=== PATIENT | male | born 1965 | race Two or more races ===

== ENCOUNTER → 2020-04-12 | Outpatient (CLI) | payer OTHER, SELFPAY ==
[2020-04-12 13:41] VITALS: BMI 30.2
== END | disposition home or self-care (01) ==
PROVIDERS: Referring Provider Physician Assistant Surgical; Visit Provider Physician Assistant Surgical
DX: Z20.822 Contact with and (suspected) exposure to COVID-19 (principal)
CPT/HCPCS: 87635; U0003

== ENCOUNTER → 2021-01-20 09:33 | Outpatient (CLI) | payer OTHER, SELFPAY ==
--- NOTE | 2021-01-20 09:45 | RAD_ITS ---
EXAM: XR CHEST, 2 VIEWS : 1965 CLINICAL INDICATION: PAIN TECHNIQUE: Frontal and lateral views of the chest. This report was created using [employer] report generation technology. COMPARISON: None. FINDINGS: LUNGS AND PLEURAL SPACES: Unremarkable. No consolidation or edema. No pneumothorax. No effusion. HEART: Unremarkable. Cardiac silhouette not enlarged. MEDIASTINUM: Central airways and mediastinal contour are unremarkable. BONES/JOINTS: Unremarkable. SOFT TISSUES: Unremarkable. RAD/Chest PA and Lateral IMPRESSION: No radiographic evidence of acute cardiopulmonary disease. at 0312 Reported and signed by: Smeaj Inman MD Electronically Signed: Semaj Inman MD at 3:11 EDT Tel , Service support ,
[2021-01-20 12:19] LABS: Absolute Lymphocyte Count 1.31 X10^3/uL (0.83-4.51); Absolute Neutrophil Count 5.6 X10^3/uL (2.0-7.7); Basophil% 1.2 % (0-1); Eosinophil# 0.63 X10^3/uL; Eosinophils% 7.5 % (0-5); Hematocrit 41.4 % (40-54); Hemoglobin 13.2 g/dL (13.0-16.5); Lymphocyte # 1.31 X10^3/ul (0.83-4.51); Lymphocyte % 15.6 % (19-41); Mean Corp Hgb Conc 31.9 g/dL (32-36); Mean Corpuscular Hgb 27.2 pg (27.0-32.0); Mean Corpuscular Volume 85.4 fL (80-94); Mean Platelet Vol. 10.6 fl (6.2-12.0); Monocyte# 0.69 X10^3/uL; Monocyte% 8.2 % (0-10); NRBC Flagged by Analyzer 0 % (0-5); Neutrophil # 5.61 X10^3/uL (2.7-7.7); Neutrophil % 66.5 % (47-70); Platelet Count 444 K/mm3 (150-450); RBC Distribution Width CV 12.5 % (11.6-14.6); RBC Distribution Width SD 38.9 fl (35.1-43.9); Red Blood Count 4.85 M/mm3 (4.6-6.2); White Blood Count 8.4 K/mm3 (4.4-11.0)
[2021-01-20 12:30] LABS: Erythrocyte Sedimentation Rate 8 mm/hr (0-20)
[2021-01-20 13:24] LABS: ALB/GLOB Ratio 0.9 RATIO (0.9-2.4); AST(SGOT) 17 U/L (15-37); Alanine Aminotransfer ALT/SGPT 29 U/L (16-61); Albumin, Serum 3.8 g/dL (3.2-5.0); Alkaline Phosphatase 40 U/L (45-117); Anion Gap 9 (5-15); BUN 20 mg/dL (7-18); BUN/Creat Ratio 17.1 RATIO (10-20); CRP < 2.90 mg/L (0.0-3.0); Calcium,Total 9.7 mg/dL (8.5-10.1); Chloride 102 mmol/L (98-107); Creatinine, Serum 1.17 mg/dL (0.70-1.30); EST Glomerular Filtration Rate 68 mL/min (>60); Est Glom Filt Rate - Afr Amer 82 mL/min (>60); Globulin 4.4 g/dL (2.2-4.2); Glucose 95 mg/dL (74-106); Hepatitis B Surface Antibody Non-Reactive; Hepatitis C Antibody Non-Reactive (Nonreactive); Potassium 3.9 mmol/L (3.5-5.1); Protein, Total 8.2 g/dL (6.4-8.2); Rheumatoid Factor < 10.0 IU/mL (<15); Sodium Level 139 mmol/L (136-145)
[2021-01-20 13:31] LABS: Hepatitis B Surface Antigen REACTIVE (Nonreactive)
[2021-01-21 13:21] LABS: ANTINUCLEAR ANTIBODIES DIRECT Negative (Negative)
[2021-01-22 15:18] LABS: CCP IgG Antibodies 9 units (0-19)
== END ==
PROVIDERS: PCP Nurse Practitioner Family; Referring Provider Internal Medicine Rheumatology; Visit Provider Internal Medicine Rheumatology
DX: L40.59 Other psoriatic arthropathy (principal); L40.8 Other psoriasis; M21.41 Flat foot [pes planus] (acquired), right foot; M21.42 Flat foot [pes planus] (acquired), left foot; Z79.899 Other long term (current) drug therapy
CPT/HCPCS: 36415; 71046; 80053; 85025; 85652; 86038; 86140; 86200; 86431; 86706; 86803; 87340

== ENCOUNTER → 2021-03-18 08:20 | Outpatient (CLI) | payer OTHER, SELFPAY | PROVIDERS: PCP Nurse Practitioner Family; Referring Provider Internal Medicine Rheumatology; Visit Provider Internal Medicine Rheumatology | DX: L40.59 Other psoriatic arthropathy (principal); L40.8 Other psoriasis; M21.41 Flat foot [pes planus] (acquired), right foot; M21.42 Flat foot [pes planus] (acquired), left foot; I10 Essential (primary) hypertension; E78.5 Hyperlipidemia, unspecified; Z79.899 Other long term (current) drug therapy ==

== ENCOUNTER → 2021-10-20 | Outpatient (CLI) | payer OTHER, SELFPAY ==
[2021-10-20 18:27] LABS: AST(SGOT) 20 U/L (15-37); Alanine Aminotransfer ALT/SGPT 27 U/L (16-61); Albumin, Serum 3.6 g/dL (3.2-5.0); Alkaline Phosphatase 34 U/L (45-117); Globulin 3.6 g/dL (2.2-4.2); Protein, Total 7.2 g/dL (6.4-8.2)
[2021-10-22 12:02] LABS: AFP, Tumor Marker 2.6 ng/mL (0.0-8.4)
== END | disposition home or self-care (01) ==
LOC: MTLAB 15:49
PROVIDERS: PCP Nurse Practitioner Family; Referring Provider Internal Medicine Gastroenterology; Visit Provider Internal Medicine Gastroenterology
DX: B18.1 Chronic viral hepatitis B without delta-agent (principal)
CPT/HCPCS: 36415; 80076; 82105

== ENCOUNTER → 2022-02-08 | Outpatient (CLI) | payer OTHER, SELFPAY ==
[2022-02-08 10:01] LABS: Absolute Lymphocyte Count 1.31 X10^3/uL (0.83-4.51); Absolute Neutrophil Count 5.3 X10^3/uL (2.0-7.7); Basophil# 0.08 X10^3/uL; Eosinophil# 0.53 X10^3/uL; Eosinophils% 6.6 % (0-5); Hematocrit 40.9 % (40-54); Hemoglobin 13.3 g/dL (13.0-16.5); Lymphocyte # 1.31 X10^3/ul (0.83-4.51); Lymphocyte % 16.3 % (19-41); Mean Corp Hgb Conc 32.5 g/dL (32-36); Mean Corpuscular Hgb 27.5 pg (27.0-32.0); Mean Corpuscular Volume 84.7 fL (80-94); Mean Platelet Vol. 10.3 fl (6.2-12.0); Monocyte# 0.82 X10^3/uL; Monocyte% 10.2 % (0-10); NRBC Flagged by Analyzer 0 % (0-5); Neutrophil # 5.25 X10^3/uL (2.7-7.7); Neutrophil % 65.4 % (47-70); Platelet Count 456 K/mm3 (150-450); RBC Distribution Width CV 12.5 % (11.6-14.6); RBC Distribution Width SD 38.5 fl (35.1-43.9); Red Blood Count 4.83 M/mm3 (4.6-6.2)
[2022-02-08 10:40] LABS: ALB/GLOB Ratio 0.9 RATIO (0.9-2.4); AST(SGOT) 12 U/L (15-37); Alanine Aminotransfer ALT/SGPT 25 U/L (16-61); Albumin, Serum 3.7 g/dL (3.2-5.0); Alkaline Phosphatase 37 U/L (45-117); Anion Gap 5 (5-15); BUN 19 mg/dL (7-18); BUN/Creat Ratio 14.7 RATIO (10-20); Calcium,Total 9.8 mg/dL (8.5-10.1); Chloride 104 mmol/L (98-107); Creatinine, Serum 1.29 mg/dL (0.70-1.30); EST Glomerular Filtration Rate 61 mL/min (>60); Est Glom Filt Rate - Afr Amer 73 mL/min (>60); Globulin 4.2 g/dL (2.2-4.2); Glucose 106 mg/dL (74-106); Potassium 4.1 mmol/L (3.5-5.1); Protein, Total 7.9 g/dL (6.4-8.2); Sodium Level 137 mmol/L (136-145)
== END | disposition home or self-care (01) ==
PROVIDERS: PCP Nurse Practitioner Family; Referring Provider Internal Medicine Rheumatology; Visit Provider Internal Medicine Rheumatology
DX: L40.59 Other psoriatic arthropathy (principal); L40.8 Other psoriasis; M21.41 Flat foot [pes planus] (acquired), right foot; I10 Essential (primary) hypertension; E78.5 Hyperlipidemia, unspecified; Z79.899 Other long term (current) drug therapy
CPT/HCPCS: 36415; 80053; 85025

== ENCOUNTER → 2023-02-11 | Outpatient (CLI) | payer OTHER, SELFPAY ==
[2023-02-11 12:38] LABS: Hematocrit 41.6 % (40-54); Hemoglobin 12.8 g/dL (13.0-16.5); Mean Corp Hgb Conc 30.8 g/dL (32-36); Mean Corpuscular Hgb 26.4 pg (27.0-32.0); Mean Platelet Vol. 10.4 fl (6.2-12.0); POSITIVE COUNT YES; POSITIVE MORPHOLOGY YES; Platelet Count 441 K/mm3 (150-450); RBC Distribution Width CV 12.7 % (11.6-14.6); RBC Distribution Width SD 39.9 fl (35.1-43.9); Red Blood Count 4.84 M/mm3 (4.6-6.2); White Blood Count 10.9 K/mm3 (4.4-11.0)
[2023-02-11 12:44] LABS: Differential Indicated MANUAL DIFF
[2023-02-11 13:15] LABS: ALB/GLOB Ratio 0.8 RATIO (0.9-2.4); AST(SGOT) 21 U/L (15-37); Alanine Aminotransfer ALT/SGPT 23 U/L (16-61); Albumin, Serum 3.6 g/dL (3.2-5.0); Alkaline Phosphatase 44 U/L (45-117); Anion Gap 7 (5-15); BUN 21 mg/dL (7-18); BUN/Creat Ratio 14.7 RATIO (10-20); Calcium,Total 9.2 mg/dL (8.5-10.1); Chloride 100 mmol/L (98-107); Creatinine, Serum 1.43 mg/dL (0.70-1.30); EST Glomerular Filtration Rate 54 mL/min (>60); Est Glom Filt Rate - Afr Amer 65 mL/min (>60); Globulin 4.4 g/dL (2.2-4.2); Glucose 115 mg/dL (74-106); Potassium 3.8 mmol/L (3.5-5.1); Sodium Level 134 mmol/L (136-145)
[2023-02-11 13:46] LABS: Eosinophil 5 % (0-5); Lymphocyte 18 % (19-41); Monocyte 5 % (0-10); Myelocyte 5 % (0-0); Neutrophil-Segmented 67 % (47-70); Total Cells Counted 100 (MANUAL DIFF)
[2023-02-11 13:47] LABS: Absolute Lymphocyte Count 1.96 X10^3/uL (0.83-4.51); Absolute Neutrophil Count 7.3 X10^3/uL (2.0-7.7)
[2023-02-11 13:48] LABS: Platelet Estimate ADEQUATE (ADEQ); Red Cell Morphology NORM C+C NORMAL (NORM C&C)
[2023-02-15 09:47] LABS: Pathologist Review Reviewed
== END | disposition home or self-care (01) ==
LOC: MTLAB 09:36
PROVIDERS: PCP Nurse Practitioner Family; Referring Provider Internal Medicine Rheumatology; Visit Provider Internal Medicine Rheumatology
DX: L40.59 Other psoriatic arthropathy (principal); L40.8 Other psoriasis; Z79.899 Other long term (current) drug therapy
CPT/HCPCS: 36415; 80053; 85025

== ENCOUNTER → 2023-04-28 | Outpatient (CLI) | payer OTHER, SELFPAY ==
--- OUTSIDE RECORDS SUMMARY | 2023-04-28 15:28 | XMS RPT_ITS | CCD ---
Author Name Unknown Address [address] [facility] [address] [place] [address] Organization [facility] Care Team Providers Care Apartment Hotel Manager Name Role Phone KIARA AUGUST-WEB COORDINATOR, SONIA Primary Care Physician ADAM DAVIDSON Attending Unavailable LORSON THREADER-WEB COORDINATOR, SONIA Primary Care Unavail able LORSON THREADER-WEB COORDINATOR, SONIA Attending Unavail able LORSON THREADER-WEB COORDINATOR, CAMILLUS Primary Care Unavail able LORSON THREADER-WEB COORDINATOR, SONIA Attending Unavail able LORSON THREADER-WEB COORDINATOR, CAMILLUS Primary Care Unavail able LORSON THREADER-WEB COORDINATOR, SONIA Attending Unavail able LORSON THREADER-WEB COORDINATOR, CAMILLUS Primary Care Unavail able [place], DR GARCIA Attending Unavailabl e LORSON THREADER-WEB COORDINATOR, CAMILLUS Primary Care Unavail able Allergies Allergy Classification Reported Allergen(s) Allergy Type Date of Onset Reaction(s) Facility (4 sources) Etanercept; Translations: [etanercept] Drug Allergy liver issues [facility] Work Phone: (4 sources) Lisinopril; Translations: [lisinopril] Drug Allergy Angioedema (disorder) [facility] Work Phone: Medications Current Medications Medication Drug Class(es) Dates Sig (Normalized) Sig (Original) amLODIPine 5 mg oral tablet (4 sources) Dihydropyridine Calcium Channel Zeenat Start: 07-19-2022 amLODIPine 5 mg oral tablet Dose : 5 mg = 1 tab(s), Oral, qDay, # 90 tab(s), 3 Refill(s), Pharmacy: [facility], 170, cm, 07/19/22 7:30:00 EDT, Height, kg, 07/19/22 7:30:00 EDT, Dosing Weight Start Date: 07/19/22 Status: Ordered Completed/Discontinued Medications Medication Drug Class(es) Dates Sig (Normalized) Sig (Original) ammonium lactate 120 mg/ml topical cream (4 sources) Start: 07-20-2021 End: 10-26-2021 ammonium lactate 12% topical cream Apply 1 joshua, Topical, BID, # 385 gram(s), 6 Refill(s), Pharmacy: [facility]/pharmacy #[id number], 170, cm, 07/20/21 7:03:00 EDT, Height, 86.4 Start Date: 07/20/21 Stop Date: 10/26/21 Status: Ordered Problems Problem Classification Problem Date Documented Date Episodic/Chronic Deficiency and other anemia (2 sources) Anemia 01-18-2022 Episodic Diabetes mellitus without complication (4 sources) Hyperglycemia 09-19-2019 Episodic Disorders of lipid metabolism (4 sources) Hypercholesterolemia 02-26-2017 Chronic Essential hypertension (9 sources) Hypertensive disorder; Translations: [Essential hypertension] Onset: 3 09-19-2019 Chronic Headache; including migraine (1 source) Morning headache 07-19-2022 Episodic Hepatitis (4 sources) 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 Osteoarthritis (4 sources) Arthritis 02-26-2017 Chronic Other inflammatory condition of skin (4 sources) 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 Other screening for suspected conditions (not mental disorders or infectious disease) (2 sources) Encounter for screening for malignant neoplasm of prostate; Translations: [Encounter for screening for malignant neoplasm of prostate] Onset: Episodic Tuberculosis (4 sources) Tuberculosis 06-05-2019 Episodic Unclassified (4 sources) Patient encounter status 08-27-2020 Results Test Name Value Interpretation Reference Range Facil ity Encounters Encounter Date Encounter Type Care Provider Facility Start: 07-20-2022 End: 07-21-2022 ambulatory SONIA CRAIG APRN-ARETHA Facility:B Start: 07-19-2022 End: 07-24-2022 ambulatory SONIA CRAIG APRN-ARETHA Facility:B Start: 07-19-2022 End: 07-23-2022 Outreach Lab SONIA NGUYEN [facility] Start: 07-16-2022 End: 07-21-2022 ambulatory SONIA CRAIG THREADER-WEB COORDINATOR Facility:B Start: 07-16-2022 End: 07-17-2022 ambulatory ADAM DAVIDSON Facility:[facility] Start: 07-16-2022 End: 07-16-2022 Patient encounter procedure ADAM DAVIDSON THREADER-WEB COORDINATOR [facility] Start: 11-02-2021 End: 11-03-[address] RADHA PARIS MD Facility:B Start: 11-02-2021 End: 11-02-[address] RADHA PARIS MD [facility] Start: 07-29-2021 End: 07-29-[address] BROOK GUNN MD [facility] Procedures Date Procedure Procedure Detail Performing Clinician Colonoscopy DR BROOK SIMMONS MD Immunizations Immunization Date Immunization Notes Care Provider Vickey ornelas 10-01-2010 tetanus toxoid, redu william diphtheria toxoid, and acellular pertussis vaccine, adsorbed DR BROOK GUNN MD [facility] 10-13-1999 diphtheria and tetan us toxoids, adsorbed for pediatric use DR BROOK GUNN MD [facility] Payers Date Payer Category Payer Unknown [id number] 1965 Unknown [id number] [id number] [id number] 1965 Unknown [id number] [id number] [id number] 1965 Unknown [id number] 2.16.8 [id number] 1965 Unknown [id number] 2.16.8 [id number] 1965 Unknown [id number] 2.16.8 [id number] Social History Date Type Detail Facility Start: 03-05-2020 Tobacco smoking status Heavy t obacco smoker (finding) [facility] Sex Assigned At Male [facility] Evaluation + Plan note Laboratory Note Date & Type Note Facility Evaluation + Plan note Future Appointments Appointment Date:01/18/2022 07:00:00 AM Scheduled Provider:SONIA CRAIG Location:[facility] Appointment Type:PC Wellness Annual Future Scheduled [id number] Hemoglobin 02/27/21Lipid Profile 02/27/21Complete Metabolic Panel 02/27/21 [facility] Evaluation + Plan note Laboratory Note Date & Type Note Facility Evaluation + Plan note Future Appointments Appointment Date:07/19/2022 08:00:00 AM Scheduled Provider:SONIA CRAIG Location:[facility] Appointment Type: OV Diagnostic Tests PendingLipoprotein (a) 07/16/22 Future Scheduled TestsProstate Specific Antigen 07/19/22A1C Hemoglobin 07/19/22Complete Blood Count 07/19/22Lipid Profile 07/19/22Complete Metabolic Panel 07/19/22 [facility] Evaluation + Plan note Note Date & Type Note Facility Evaluation + Plan note Future Appointments Appointment Date:12/20/2022 07:30:00 AM Scheduled Provider:SONIA CRAIG Location:[facility] Appointment Type:PC Wellness Annual [facility] Hospital course Narrative Note Date & Type Note Facility Hospital course Narrative No data available for this section [facility] Hospital Discharge instructions Note Date & Type Note Facility Hospital Discharge instructions No data available for this section [facility] Progress note Note Date & Type Note Facility Progress note No data available for this section [facility] Summary Purpose Family History No Family History Records FoundNo Family History Records Found Advance Directives No Advanced Directives Records FoundNo Advanced Directives Records Found Additional Source Comments (unrecognized sect ion and content) No Status Records FoundNo Status Records Found INFORMATION SOURCE (unrecogn ized section and content) DATE CREATED AUTHOR AUTHOR'S ORGANIZ ATION 09/10/2022 [facility] ([place]) Care Team (unrecognized sect ion and content) Personnel Name: SONIA CRAIG Address: [address] [place] [address]- Care Team Personnel Name: SONIA CRAIG Position: P4 Advanced Mural Painter Member Role: Primary Care Physician Address: Address: [address] [place] [address] Care Team Related Persons Name: DIDIER GRIMES Address: Home [address] [place] [id number] Name: DIDIER GRIMES Address: Home [address] [place] [phone] [place] Care Team Personnel Name: SONIA CRAIG Position: P4 Advanced Mural Painter Member Role: Primary Care Physician Address: Address: [address] [place] [address] Care Team Related Persons Name: DIDIER GRIMES Address: Home [address] [place] [id number] Care Team (unrecognized sect ion and content) Care Team Personnel Name: SONIA CRAIG Position: P4 Advanced Practice Nurse Med Service: Active Provider Member Role: Primary Care Physician Address: Address: [address] [place] [address] Care Team Related Persons Name: DIDIER GRIMES Address: Home [address] [place], [place] [id number] [place] Name: DIDIER GRIMES Address: Home [address] [place], [place] [id number] FOR RECORDS PERTAINING TO PATIENTS WHO ARE OR HAVE BEEN ENROLLED IN A CHEMICAL DEPENDENCY/SUBSTANCEABUSE PROGRAM, SOME INFORMATION MAY BE OMITTED. This clinical summary was aggregated from multiple sources. Caution should be exercised in using it in the provision of clinical care. This summary normalizes information from multiple sources, and as a consequence, information in this document may materially change the coding, format and clinical context of patient data. In addition, data may be omitted in some cases. CLINICAL DECISIONS SHOULD BE BASED ON THE PRIMARY CLINICAL RECORDS. [facility] [employer] provides no warranty or guarantee of the accuracy or completeness of information in this document.
[2023-04-28 17:47] LABS: Absolute Lymphocyte Count 1.86 X10^3/uL (0.83-4.51); Absolute Neutrophil Count 5.8 X10^3/uL (2.0-7.7); Basophil% 1.1 % (0-1); Eosinophil# 0.78 X10^3/uL; Eosinophils% 8.2 % (0-5); Hematocrit 38.4 % (40-54); Hemoglobin 12.1 g/dL (13.0-16.5); Lymphocyte # 1.86 X10^3/ul (0.83-4.51); Lymphocyte % 19.5 % (19-41); Mean Corp Hgb Conc 31.5 g/dL (32-36); Mean Corpuscular Hgb 25.9 pg (27.0-32.0); Mean Corpuscular Volume 82.2 fL (80-94); Mean Platelet Vol. 10.4 fl (6.2-12.0); Monocyte# 0.92 X10^3/uL; Monocyte% 9.7 % (0-10); NRBC Flagged by Analyzer 0 % (0-5); Neutrophil # 5.81 X10^3/uL (2.7-7.7); Platelet Count 443 K/mm3 (150-450); RBC Distribution Width CV 12.9 % (11.6-14.6); RBC Distribution Width SD 38.3 fl (35.1-43.9); Red Blood Count 4.67 M/mm3 (4.6-6.2); White Blood Count 9.5 K/mm3 (4.4-11.0)
[2023-04-28 18:13] LABS: ALB/GLOB Ratio 0.9 RATIO (0.9-2.4); AST(SGOT) 20 U/L (15-37); Alanine Aminotransfer ALT/SGPT 26 U/L (16-61); Albumin, Serum 3.6 g/dL (3.2-5.0); Alkaline Phosphatase 35 U/L (45-117); Anion Gap 5 (5-15); BUN 19 mg/dL (7-18); BUN/Creat Ratio 14.3 RATIO (10-20); Calcium,Total 9.7 mg/dL (8.5-10.1); Chloride 105 mmol/L (98-107); Creatinine, Serum 1.33 mg/dL (0.70-1.30); EST Glomerular Filtration Rate 58 mL/min (>60); Est Glom Filt Rate - Afr Amer 71 mL/min (>60); Globulin 3.8 g/dL (2.2-4.2); Glucose 100 mg/dL (74-106); Potassium 3.6 mmol/L (3.5-5.1); Protein, Total 7.4 g/dL (6.4-8.2); Sodium Level 139 mmol/L (136-145)
== END | disposition home or self-care (01) ==
LOC: MTLAB 14:53
PROVIDERS: PCP Nurse Practitioner Family; Referring Provider Internal Medicine Rheumatology; Visit Provider Internal Medicine Rheumatology
DX: L40.59 Other psoriatic arthropathy (principal); Z79.899 Other long term (current) drug therapy
CPT/HCPCS: 36415; 80053; 85025

== ENCOUNTER → 2023-10-20 | Outpatient (CLI) | payer OTHER, SELFPAY ==
[2023-10-20 10:11] LABS: Absolute Neutrophil Count 5.7 X10^3/uL (2.0-7.7); Basophil# 0.13 X10^3/uL; Basophil% 1.3 % (0-1); Eosinophil# 0.71 X10^3/uL; Eosinophils% 7.3 % (0-5); Hematocrit 40.4 % (40-54); Hemoglobin 12.7 g/dL (13.0-16.5); Lymphocyte % 21.6 % (19-41); Mean Corp Hgb Conc 31.4 g/dL (32-36); Mean Corpuscular Hgb 25.9 pg (27.0-32.0); Mean Corpuscular Volume 82.4 fL (80-94); Monocyte% 10.3 % (0-10); NRBC Flagged by Analyzer 0 % (0-5); Neutrophil # 5.74 X10^3/uL (2.7-7.7); Platelet Count 398 K/mm3 (150-450); RBC Distribution Width CV 12.9 % (11.6-14.6); RBC Distribution Width SD 38.5 fl (35.1-43.9); White Blood Count 9.7 K/mm3 (4.4-11.0)
[2023-10-20 11:04] LABS: ALB/GLOB Ratio 0.9 RATIO (0.9-2.4); AST(SGOT) 20 U/L (15-37); Alanine Aminotransfer ALT/SGPT 23 U/L (16-61); Albumin, Serum 3.8 g/dL (3.2-5.0); Alkaline Phosphatase 40 U/L (45-117); Anion Gap 8 (5-15); BUN 22 mg/dL (7-18); BUN/Creat Ratio 15.9 RATIO (10-20); Calcium,Total 9.7 mg/dL (8.5-10.1); Chloride 102 mmol/L (98-107); Creatinine, Serum 1.38 mg/dL (0.70-1.30); EST Glomerular Filtration Rate 56 mL/min (>60); Est Glom Filt Rate - Afr Amer 68 mL/min (>60); Globulin 4.3 g/dL (2.2-4.2); Glucose 110 mg/dL (74-106); Potassium 4.4 mmol/L (3.5-5.1); Protein, Total 8.1 g/dL (6.4-8.2); Sodium Level 135 mmol/L (136-145)
== END | disposition home or self-care (01) ==
PROVIDERS: PCP Nurse Practitioner Family; Referring Provider Internal Medicine Rheumatology; Visit Provider Internal Medicine Rheumatology
DX: L40.59 Other psoriatic arthropathy (principal); Z79.899 Other long term (current) drug therapy
CPT/HCPCS: 36415; 80053; 85025

== ENCOUNTER → 2024-04-09 | Outpatient (CLI) | payer OTHER, SELFPAY ==
[2024-04-09 10:48] LABS: Absolute Lymphocyte Count 1.94 X10^3/uL (0.83-4.51); Absolute Neutrophil Count 6.7 X10^3/uL (2.0-7.7); Basophil# 0.11 X10^3/uL; Basophil% 1.1 % (0-1); Eosinophils% 4.8 % (0-5); Hematocrit 41.2 % (40-54); Lymphocyte # 1.94 X10^3/ul (0.83-4.51); Lymphocyte % 18.7 % (19-41); Mean Corp Hgb Conc 31.6 g/dL (32-36); Mean Corpuscular Hgb 26.1 pg (27.0-32.0); Mean Corpuscular Volume 82.7 fL (80-94); Mean Platelet Vol. 10.4 fl (6.2-12.0); Monocyte# 1.04 X10^3/uL; NRBC Flagged by Analyzer 0 % (0-5); Neutrophil # 6.71 X10^3/uL (2.7-7.7); Neutrophil % 64.6 % (47-70); Platelet Count 418 K/mm3 (150-450); RBC Distribution Width CV 12.9 % (11.6-14.6); RBC Distribution Width SD 38.7 fl (35.1-43.9); Red Blood Count 4.98 M/mm3 (4.6-6.2); White Blood Count 10.4 K/mm3 (4.4-11.0)
[2024-04-09 11:31] LABS: ALB/GLOB Ratio 0.9 RATIO (0.9-2.4); AST(SGOT) 17 U/L (15-37); Alanine Aminotransfer ALT/SGPT 25 U/L (16-61); Albumin, Serum 3.7 g/dL (3.2-5.0); Alkaline Phosphatase 42 U/L (45-117); Anion Gap 3 (5-15); BUN 15 mg/dL (7-18); Chloride 104 mmol/L (98-107); Creatinine, Serum 1.15 mg/dL (0.70-1.30); EST Glomerular Filtration Rate 69 mL/min (>60); Est Glom Filt Rate - Afr Amer 83 mL/min (>60); Globulin 4.3 g/dL (2.2-4.2); Glucose 83 mg/dL (74-106); Potassium 4.2 mmol/L (3.5-5.1); Sodium Level 136 mmol/L (136-145)
== END | disposition home or self-care (01) ==
LOC: MTLAB 09:24
PROVIDERS: PCP Nurse Practitioner Family; Referring Provider Internal Medicine Rheumatology; Visit Provider Internal Medicine Rheumatology
DX: L40.8 Other psoriasis (principal); Z79.899 Other long term (current) drug therapy
CPT/HCPCS: 36415; 80053; 85025

== ENCOUNTER → 2024-10-10 | Outpatient (CLI) | payer OTHER, SELFPAY ==
[2024-10-10 10:51] LABS: Hematocrit 41.5 % (40-54); Hemoglobin 13.1 g/dL (13.0-16.5); Immature Granulocytes Count 0.040 X10^3/uL (0.0-0.0); Mean Corp Hgb Conc 31.6 g/dL (32-36); Mean Corpuscular Volume 83.8 fL (80-94); Mean Platelet Vol. 11.1 fl (6.2-12.0); NRBC Flagged by Analyzer 0 % (0-5); Platelet Count 354 K/mm3 (150-450); RBC Distribution Width CV 12.7 % (11.6-14.6); RBC Distribution Width SD 38.2 fl (35.1-43.9); Red Blood Count 4.95 M/mm3 (4.6-6.2); White Blood Count 9.0 K/mm3 (4.4-11.0)
[2024-10-10 11:40] LABS: AST(SGOT) 28 U/L (<=37); Alanine Aminotransfer ALT/SGPT 19 U/L (<=46); Albumin, Serum 4.3 g/dL (3.4-4.8); Alkaline Phosphatase 37 U/L (40-129); Anion Gap 13 (5-15); BUN 18 mg/dL (4-19); BUN/Creat Ratio 15.1 RATIO (10-20); Calcium,Total 10.0 mg/dL (7.6-11.0); Carbon Dioxide 23.9 mmol/L (21.0-32.0); Chloride 101 mmol/L (98-108); Globulin 3.5 g/dL (2.2-4.2); Glucose 101 mg/dL (70-99); Potassium 4.4 mmol/L (3.3-5.1)
--- OUTSIDE RECORDS SUMMARY | 2024-10-11 03:43 | XMS RPT_ITS | CCD ---
Author Organization [facility] Inform ion Partnership [facility] Care Team Providers Care Rehabilitation Liaison Name Role Phone [employer]ORSON TUMBLER PLATER-MEDICAL RECORDS TECH, JENNY Primary Care Physician [employer]ORSON TUMBLER PLATER-MEDICAL RECORDS TECH, JENNY Attending Unavail able [employer]ORSON TUMBLER PLATER-MEDICAL RECORDS TECH, JENNY Primary Care Unavail able [employer]ORSON TUMBLER PLATER-MEDICAL RECORDS TECH, JENNY Attending Unavail able [employer]ORSON TUMBLER PLATER-MEDICAL RECORDS TECH, JENNY Primary Care Unavail able LORSON TUMBLER PLATER-MEDICAL RECORDS TECH, JENNY Primary Care Physician Juanpablo Davenport Attending Unavailable L[employer]on SURGERY CONSULTANT, Jenny Primary Care Unavailable [employer]orson SURGERY CONSULTANT, Pierceton Primary Care Unavailable Vellanki, Brook Referring Unavailable Vellanki, Brook Attending Unavailable Vellanki, Brook Referring Unavailable Vellanki, Brook Attending Unavailable [employer]on SURGERY CONSULTANT, [place]ceton Primary Care Unavailable Yonas Solares Attending Unavailable [employer]on SURGERY CONSULTANT, Jenny Referring Unavailable [employer]on SURGERY CONSULTANT, Pierceton Primary Care Unavailable LORSON TUMBLER PLATER-MEDICAL RECORDS TECH, TRIMONT Primary Care Unavail able [employer]ORSON TUMBLER PLATER-MEDICAL RECORDS TECH, JENNY Attending Unavail able [employer]SON TUMBLER PLATER-MEDICAL RECORDS TECH, JENNY Attending Unavail able LORSON TUMBLER PLATER-MEDICAL RECORDS TECH, TRIMONT Primary Care Unavail able L[employer]SON TUMBLER PLATER-MEDICAL RECORDS TECH, JENNY Attending Unavail able LORSON TUMBLER PLATER-MEDICAL RECORDS TECH, TRIMONT Primary Care Unavail able Allergies Allergy Classification Reported Allergen(s) Allergy Type Date of Onset Reaction(s) Facility (7 sources) Etanercept; Translations: [etanercept] Drug Allergy liver issues [facility] (11 sources) Lisinopril; Translations: [lisinopril] Drug Allergy 1 Angioedema (disorder) [facility] (1 source) Lisinopril Drug Allergy 4 [facility] Repository Medications Current Medications Medication Drug Class(es) Dates Sig (Normalized) Sig (Original) amLODIPine 5 mg oral tablet (7 sources) Dihydropyridine Calcium Channel Zeenat Start: 12-28-2023 amLODIPine 5 mg oral tablet Dose : 5 mg = 1 tab(s), Oral, qDay, # 90 tab(s), 3 Refill(s), Pharmacy: [facility], 169, cm, 12/28/23 7:10:00 EDT, Height, kg, 12/28/23 7:10:00 EDT, Dosing Weight Start Date: 12/28/23 Status: Ordered Start: 12-20-2022 amLODIPine 5 m g oral tablet Dose : 5 mg = 1 tab(s), Oral, qDay, # 90 tab(s), 3 Refill(s), Pharmacy: [facility], 170, cm, 12/20/22 7:28:00 EDT, Height, kg, 12/20/22 7:28:00 EDT, Dosing Weight Start Date: 12/20/22 Status: Ordered Start: 07-19-2022 amLODIPine 5 m g oral tablet Dose : 5 mg = 1 tab(s), Oral, qDay, # 90 tab(s), 3 Refill(s), Pharmacy: [facility], 170, cm, 07/19/22 7:30:00 EDT, Height, kg, 07/19/22 7:30:00 EDT, Dosing Weight Start Date: 07/19/22 Status: Ordered Start: 04-08-2022 amLODIPine 5 m g oral tablet Dose : 5 mg = 1 tab(s), Oral, qDay, # 90 tab(s), 0 Refill(s), Pharmacy: [facility], 170, cm, 01/18/22 7:11:00 EDT, Height, kg, 01/18/22 7:11:00 EDT, Dosing Weight Start Date: 04/08/22 Status: Ordered Start: 03-25-2021 amLODIPine 5 m g oral tablet Dose : 5 mg = 1 tab(s), Oral, qDay, # 90 tab(s), 3 Refill(s), Pharmacy: [facility], 171.5, cm, 08/27/20 7:46:00 EDT, Height, kg, 08/27/20 7:46:00 EDT, Dosing Weight Start Date: 03/25/21 Status: Ordered apremilast 30 mg oral tablet (11 sources) Start: 02-26-2017 Otezla 30 mg o ral tablet Dose : 30 mg = 1 tab(s), Oral, BID, # 30 tab(s), 0 Refill(s) Start Date: 02/26/17 Status: Ordered atorvastatin 20 mg oral tablet (2 sources) HMG-CoA Reductase Inhibitor Start: 08-30-2023 End: 08-24-2024 atorvastatin 20 mg oral tablet Dose : 20 mg = 1 tab(s), Oral, qDay, # 90 tab(s), 3 Refill(s), Pharmacy: [facility], 169, cm, 08/22/23 7:07:00 EDT, Height, kg, 08/22/23 7:07:00 EDT, Dosing Weight Start Date: 08/30/23 Stop Date: 08/24/24 Status: Ordered fenofibrate 134 mg oral capsule (11 sources) Peroxisome Proliferator Receptor alpha Agonist Start: 05-30-2023 fenofibrate 134 mg oral capsule Dose : 134 mg = 1 cap(s), Oral, qDay, # 90 cap(s), 3 Refill(s), Pharmacy: [facility], 170, cm, 05/30/23 7:04:00 EST, Height, kg, 05/30/23 7:04:00 EST, Dosing Weight Start Date: 05/30/23 Status: Ordered Start: 04-12-2020 End: 12-31-2021 fenofibrate 134 mg oral caps ule Dose : 134 mg = 1 cap(s), Oral, qDay, in lieu of provider absence, # 90 cap(s), 3 Refill(s), Pharmacy: [facility], 170, cm, 07/19/22 7:30:00 EDT, Height, kg, 07/19/22 7:30:00 EDT, Dosing Weight Start Date: 07/19/22 Status: Ordered halobetasol propionate 0.5 mg/ml topical cream (7 sources) Corticosteroid Start: 08-03-2021 halobetasol 0. 05% topical cream Apply 1 joshua, Topical, BID, # 50 gram(s), 3 Refill(s), Pharmacy: [facility], Cream, 170, cm, 07/20/21 7:03:00 EDT, Height, 86.4, kg, 07/20/21 7:03:00 EDT, Dosing Weight Start Date: 08/03/21 Status: Ordered Start: 07-20-2021 halobetasol 0. 05% topical cream Apply 1 joshua, Topical, BID, # 50 gram(s), 3 Refill(s), Pharmacy: [facility] #[id number], Cream, 170, cm, 07/20/21 7:03:00 EDT, Height, 86.4, kg, 07/20/21 7:03:00 EDT, Dosing Weight Start Date: 07/20/21 Status: Ordered hydroCHLOROthiazide 25 mg oral tablet (11 sources) Thiazide Diuretic Start: 12-28-2023 hydroCHLOROthiazide 25 mg oral tablet Dose : 25 mg = 1 tab(s), Oral, qDay, # 90 tab(s), 3 Refill(s), Pharmacy: [facility], 169, cm, 12/28/23 7:10:00 EDT, Height, kg, 12/28/23 7:10:00 EDT, Dosing Weight Start Date: 12/28/23 Status: Ordered Start: 04-12-2020 hydroCHLOROthi azide 25 mg oral tablet Dose : 25 mg = 1 tab(s), Oral, qDay, # 90 tab(s), 3 Refill(s), Pharmacy: [facility], 170, cm, 12/20/22 7:28:00 EDT, Height, kg, 12/20/22 7:28:00 EDT, Dosing Weight Start Date: 12/20/22 Status: Ordered 24 hr nicotine 0.875 mg/hr transdermal system (1 source) Cholinergic Nicotinic Agonist Start: 07-19-2022 End: 10-11-2022 apply 1 dose transdermal route once daily NicoDerm CQ 21 mg/24 hr transdermal patch Dose = 1 patch(es), Transdermal, Daily, X 6 week(s), # 42 patch(es), 1 Refill(s), Pharmacy: [facility] #[id number], 170, cm, 07/19/22 7:30:00 EDT, Height Start Date: 07/19/22 Stop Date: 10/11/22 Status: Ordered Completed/Discontinued Medications Medication Drug Class(es) Dates Sig (Normalized) Sig (Original) ammonium lactate 120 mg/ml topical cream (7 sources) Start: 05-30-2023 End: 09-05-2023 ammonium lactate 12% topical cream Apply 1 joshua, Topical, BID, # 385 gram(s), 6 Refill(s), Pharmacy: [facility], 170, cm, 05/30/23 7:04:00 EST, Height, 90.1, kg, 05/30/23 7:04:00 EST, Dosing Weight Start Date: 05/30/23 Stop Date: 09/05/23 Status: Ordered Start: 07-20-2021 End: 10-26-2021 ammonium lactate 12% topical cream Apply 1 joshua, Topical, BID, # 385 gram(s), 6 Refill(s), Pharmacy: [facility] #[id number], 170, cm, 07/20/21 7:03:00 EDT, Height, 86.4 Start Date: 07/20/21 Stop Date: 10/26/21 Status: Ordered Problems Active Problems Problem Classification Problem Date Documented Da te Episodic/Chronic Cardiac dysrhythmias (3 sources) Palpitations 05-30-2023 Episodic Chronic kidney disease (3 sources) Chronic kidney disease stage 3 08-22-2023 Chronic Deficiency and other anemia (5 sources) Anemia 01-18-2022 Episodic Diabetes mellitus without complication (9 sources) Hyperglycemia; Translations: [Impaired fasting glucose] Onset: 08-24-2023 09-19-2019 Episodic Disorders of lipid metabolism (9 sources) Hypercholesterolemi a; Translations: [Pure hypercholesterolemi a, unspecified] Onset: 08-24-2023 02-26-2017 Chronic Essential hypertension (12 sources) Hypertensive disorder; Translations: [Essential hypertension] Onset: 08-24-2023 09-19-2019 Chronic Headache; including migraine (4 sources) Morning headache 07-19-2022 Episodic Hepatitis (7 sources) 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 Osteoarthritis (7 sources) Arthritis 02-26-2017 Chronic Other inflammatory condition of skin (7 sources) 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 Other inflammatory condition of skin (1 source) Other psoriasis; Translations: [Other psoriasis] Onset: 04-30-2024 Chronic Other inflammatory condition of skin (1 source) Other psoriatic arthropathy; Translations: [Other psoriatic arthropathy] Onset: 11-12-2023 Chronic Other lower respiratory disease (3 sources) Rib pain 08-22-2023 Episodic Spondylosis; intervertebral disc disorders; other back problems (1 source) Other cervical disc degeneration, unspecified cervical region; Translations: [Other cervical disc degeneration, unspecified cervical region] Onset: 06-30-2023 Chronic Tuberculosis (7 sources) Tuberculosis 06-05-2019 Episodic Unclassified (11 sources) Patient encounter status 08-27-2020 Unclassified (3 sources) Requires follow-up 12-20-2022 Past or Other Problems Problem Classification Problem Date Documented Da te Episodic/Chronic Other inflammatory condition of skin (1 source) Pruritus, unspecified; Translations: [Pruritus, unspecified] Onset: 06-30-2023 Episodic Spondylosis; intervertebral disc disorders; other back problems (1 source) Cervicalgia; Translations: [Cervicalgia] Onset: 06-30-2023 Episodic Results Test Name Value Interpretation Reference Range Facility .GFRon 06-22-2024 Estimated Glomerular Filtration Rate 61 ml/min/1.73sqm Normal [facility] Comment on above: Result Comment: Stages of Chronic Kidney Disease (CKD) Stage Description eGFR(ml/min/1.73 sq.m.) CKD 1 Normal kidney function or >=90 normal kindney function with possible kidney damage (ex. Proteinuria) CKD 2 Kidney damage with mild loss 60-89 of kidney function CKD 3a Mild to moderate loss of kidney 45-59 function CKD 3b Moderate to severe loss of 30-44 of kindey function CKD 4 Severe loss of kidney function 15-29 CKD 5 Kidney failure <15 Note: (go live 2024) the eGFR calculation was updated to the 2020 CKD-EPI creatinine equation without a race factor to calculate the eGFR results. Performed By: #### C MP, LIPID, GFR, A1C #### [facility] [address], [place] [address] A1Con 06-22-2024 Glucose [Mass/Vol] 126 mg/dL Normal [facility] Comment on above: Result Comment: Gudelia mated Average Glucose calculated by equation ((28.7xA1C)-46.7) Estimated average glucose (eAG) is a calculated value from Hemoglobin A1C and is investment representative of the average blood glucose level in the last 2-3 month period. Normal range: less than 114 mg/dL Performed By: #### C MP, LIPID, GFR, A1C #### [address] [address] HbA1c (Bld) [Mass fraction] 6.0 % Normal 4.3-6.4 [facility] Comment on above: Performed By: #### C MP, LIPID, GFR, A1C #### [address] [address] CMPon 06-22-2024 Albumin Level 3.9 G/dL Normal 3.4-4.8 [facility] Comment on above: Performed By: #### C MP, LIPID, GFR, A1C #### [address] [address] Albumin/Globulin [Mass ratio] 1.0 {ratio} Low 1.1-2.5 [facility] Comment on above: Performed By: #### C MP, LIPID, GFR, A1C #### [address] [address] ALP [Catalytic activity/Vol] 50 U/L Normal 40-135 [facility] Comment on above: Performed By: #### C MP, LIPID, GFR, A1C #### [address] [address] ALT [Catalytic activity/Vol] 27 U/L Normal 16-63 [facility] Comment on above: Performed By: #### C MP, LIPID, GFR, A1C #### [address] [address] AST [Catalytic activity/Vol] 18 U/L Normal 10-40 [facility] Comment on above: Performed By: #### C MP, LIPID, GFR, A1C #### [address] [address] Bili Total 0.5 mg/dL Normal 0.2-1.0 [facility] Comment on above: Result Comment: Use of this assay is not recommended for patients undergoing treatment with eltrombopag due to the potential for falsely elevated results. Performed By: #### C MP, LIPID, GFR, A1C #### [address] [address] BUN/Creatinine Ratio 17 ratio Normal 7-27 [facility] Comment on above: Performed By: #### C MP, LIPID, GFR, A1C #### [address] [address] Calcium [Mass/Vol] 9.7 mg/dL Normal 8.4-10.2 [facility] Comment on above: Performed By: #### C MP, LIPID, GFR, A1C #### [place] [id number] Chloride [Moles/Vol] 99 mmol/L Normal 98-107 [facility] Comment on above: Performed By: #### C MP, LIPID, GFR, A1C #### [place] [id number] CO2 [Moles/Vol] 28 mmol/L Normal 23-31 [facility] Comment on above: Performed By: #### C MP, LIPID, GFR, A1C #### [address] [address] Creatinine [Mass/Vol] 1.33 mg/dL High 0.70-1.30 [facility] Comment on above: Result Comment: Test ing performed on Siemens Dimension EXL analyzer using a modified kinetic Joe technique. Performed By: #### C MP, LIPID, GFR, A1C #### [address] [address] Electrolyte Balance 9.0 mEq/L Normal 4.0-15.0 [facility] Comment on above: Performed By: #### C MP, LIPID, GFR, A1C #### [address] [address] Globulin 4.1 G/dL High 1.5-3.8 [facility] Comment on above: Performed By: #### C MP, LIPID, GFR, A1C #### [address] [address] Glucose [Mass/Vol] 112 mg/dL Normal 80-115 [facility] Comment on above: Performed By: #### C MP, LIPID, GFR, A1C #### [address] [address] Potassium [Moles/Vol] 4.3 mmol/L Normal 3.5-5.1 [facility] Comment on above: Performed By: #### C MP, LIPID, GFR, A1C #### [address] [address] Sodium [Moles/Vol] 136 mmol/L Normal 136-145 [facility] Comment on above: Performed By: #### C MP, LIPID, GFR, A1C #### [address] [address] Total Protein 8.0 G/dL Normal 6.4-8.2 [facility] Comment on above: Performed By: #### C MP, LIPID, GFR, A1C #### [address] [address] Urea nitrogen [Mass/Vol] 23 mg/dL High 7-18 [facility] Comment on above: Performed By: #### C MP, LIPID, GFR, A1C #### [address] [address] LIPIDon 06-22-2024 Cholesterol [Mass/Vol] 177 mg/dL Normal 0-200 [facility] Comment on above: Result Comment: Chol esterol Reference Interval: Less than 200 Desirable 200-239 Borderline high risk 240 and above High risk Performed By: #### C MP, LIPID, GFR, A1C #### [address] [address] Cholesterol in HDL [Mass/Vol] 53 mg/dL Normal 40-60 [facility] Comment on above: Performed By: #### C MP, LIPID, GFR, A1C #### [address] [address] Cholesterol in LDL [Mass/Vol] 107 mg/dL Normal 0-130 [facility] Comment on above: Performed By: #### C MP, LIPID, GFR, A1C #### [place] [address] [place], [place] [address] Triglyceride [Mass/Vol] 86 mg/dL Normal 0-150 [facility] Comment on above: Result Comment: Trig lyceride Reference Interval: Less than 150 Normal 150-199 Borderline high risk 200-499 High risk 500 or higher Very high risk Performed By: #### C MP, LIPID, GFR, A1C #### [place] [address] [place], [place] [address] CBC W/Diff, Automatedon Absolute Lymph 1.94 X10 3/uL Normal 0.83-4.51 [facility] Comment on above: Performed By: #### L 500.4050, L100.0100 #### [facility] [address] [place], [address] Absolute Neut 6.7 X10 3/uL Normal 2.0-7.7 [facility] Comment on above: Performed By: #### L 500.4050, L100.0100 #### [facility] [address] [place], [address] Basophils/100 WBC (Bld) 1.1 % High 0-1 [facility] Comment on above: Performed By: #### L 500.4050, L100.0100 #### [facility] [address] [place], [address] Eosinophils/100 WBC (Bld) 4.8 % Normal 0-5 [facility] Comment on above: Performed By: #### L [id number], L100.0100 #### [facility] [address] [place], [address] Erythrocyte distribution width (RBC) [Ratio] 12.9 % Normal 11.6-14.6 [facility] Comment on above: Performed By: #### L [id number], L100.0100 #### [facility] [address] [place], [address] Hematocrit (Bld) [Volume fraction] 41.2 % Normal 40-54 [facility] Comment on above: Performed By: #### L 500.4050, L100.0100 #### [facility] [address] [place], [address] Hemoglobin (Bld) [Mass/Vol] 13.0 g/dL Normal 13.0-16.5 [facility] Comment on above: Performed By: #### L 500.4050, L100.0100 #### [facility] [address] [place], [address] IG% 0.800 Normal 0.0-0.9 [facility] Comment on above: Result Comment: IG% - Immature Granulocytes (promyelocytes, myelocytes and metamyelocytes) > 1% indicates that a LEFT SHIFT is Present. Performed By: #### L 500.4050, L100.0100 #### [facility] [address] [place], [address] Lymphocytes/100 WBC (Bld) 18.7 % Low 19-41 [facility] Comment on above: Performed By: #### L 500.4050, L100.0100 #### [facility] [address] [place], [address] MCH (RBC) [Entitic mass] 26.1 pg Low 27.0-32.0 [facility] Comment on above: Performed By: #### L 500.4050, L100.0100 #### [facility] [address] [place], [address] MCHC (RBC) [Mass/Vol] 31.6 g/dL Low 32-36 [facility] Comment on above: Performed By: #### L 500.4050, L100.0100 #### [facility] [address] [place], [address] MCV (RBC) [Entitic vol] 82.7 fL Normal 80-94 [facility] Comment on above: Performed By: #### L 500.4050, L100.0100 #### [facility] [address] [place], [address] Monocytes/100 WBC (Bld) 10.0 % Normal 0-10 [facility] Comment on above: Performed By: #### L 500.4050, L100.0100 #### [facility] [address] [place], [address] Neutrophils/100 WBC (Bld) 64.6 % Normal 47-70 [facility] Comment on above: Performed By: #### L 500.4050, L100.0100 #### [facility] [address] [place], [address] Nucleated RBC (Bld) [#/Vol] 0 10*3/uL Normal 0-5 [facility] Comment on above: Performed By: #### L 500.4050, L100.0100 #### [facility] [address] [place], [address] Platelet mean volume (Bld) [Entitic vol] 10.4 fL Normal 6.2-12.0 [facility] Comment on above: Performed By: #### L 500.4050, L100.0100 #### [facility] [address] [place], [address] Platelets (Bld) [#/Vol] 418 10*3/uL Normal 150-450 [facility] Comment on above: Performed By: #### L 500.4050, L100.0100 #### [facility] [address] [place], [address] RBC (Bld) [#/Vol] 4.98 10*6/uL Normal 4.6-6.2 [facility] Comment on above: Performed By: #### L 500.4050, L100.0100 #### [facility] [address] [place], [address] RDW SD 38.7 fl Normal 35.1-43.9 [facility] Comment on above: Performed By: #### L 500.4050, L100.0100 #### [facility] [address] [place], [address] WBC (Bld) [#/Vol] 10.4 10*3/uL Normal 4.4-11.0 [facility] Comment on above: Performed By: #### L 500.4050, L100.0100 #### [facility] [address] [place], [address] Comprehensive Metabolic Prof ilon 04-09-2024 Albumin [Mass/Vol] 3.7 g/dL Normal 3.2-5.0 [facility] Comment on above: Performed By: #### L 500.4050, L100.0100 #### [facility] [address] [place], [address] Albumin/Globulin [Mass ratio] 0.9 {ratio} Normal 0.9-2.4 [facility] Comment on above: Performed By: #### L 500.4050, L100.0100 #### [facility] [address] [place], [address] ALK P 42 U/L Low 45-117 [facility] Comment on above: Performed By: #### L 500.4050, L100.0100 #### [facility] [address] [place], [address] ALT [Catalytic activity/Vol] 25 U/L Normal 16-61 [facility] Comment on above: Performed By: #### L 500.4050, L100.0100 #### [facility] [address] [place], [address] AST [Catalytic activity/Vol] 17 U/L Normal 15-37 [facility] Comment on above: Performed By: #### L 500.4050, L100.0100 #### [facility] [address] [place], [address] Bilirubin [Mass/Vol] 0.40 mg/dL Normal 0.20-1.00 [facility] Comment on above: Result Comment: For patients on eltrombopag therapy, use of Dimension [place] TBIL is not recommended. Performed By: #### L 500.4050, L100.0100 #### [facility] [address] [place], [address] BUN/CRE 13.0 RATIO Normal 10-20 [facility] Comment on above: Performed By: #### L 500.4050, L100.0100 #### [facility] [address] [place], [address] CA,Total 10.0 mg/dL Normal 8.5-10.1 [facility] Comment on above: Performed By: #### L 500.4050, L100.0100 #### [facility] [address] [place], [address] Chloride [Moles/Vol] 104 mmol/L Normal 98-107 [facility] Comment on above: Performed By: #### L 500.4050, L100.0100 #### [facility] [address] [place], [address] CO2 [Moles/Vol] 29.0 mmol/L Normal 21.0-32.0 [facility] Comment on above: Performed By: #### L 500.4050, L100.0100 #### [facility] [address] [place], [address] Creatinine [Mass/Vol] 1.15 mg/dL Normal 0.70-1.30 [facility] Comment on above: Result Comment: The validity of the calculated GFR GFRAA in patients over 70 years has not been determined. Clinical correlation is essential. Performed By: #### L 500.4050, L100.0100 #### [facility] [address] [place], [address] EST GFR - AA 83 mL/min Normal >60 [facility] Comment on above: Result Comment: Afri can [place] GFR Calc Performed By: #### L 500.4050, L100.0100 #### [facility] [address] [place], [address] GAP 3 Low 5-15 [facility] Comment on above: Performed By: #### L 500.4050, L100.0100 #### [facility] [address] [place], [address] GFR/1.73 sq M.predicted among non-blacks MDRD (S/P/Bld) [Vol rate/Area] 69 mL/min/{1.73_m2} Normal >60 [facility] Comment on above: Result Comment: Non- GFR Calc Performed By: #### L 500.4050, L100.0100 #### [facility] [address] [place], [address] Globulin (S) [Mass/Vol] 4.3 g/dL High 2.2-4.2 [facility] Comment on above: Performed By: #### L 500.4050, L100.0100 #### [facility] [address] [place], [address] Glucose [Mass/Vol] 83 mg/dL Normal 74-106 [facility] Comment on above: Performed By: #### L 500.4050, L100.0100 #### [facility] [address] [place], [address] Potassium [Moles/Vol] 4.2 mmol/L Normal 3.5-5.1 [facility] Comment on above: Performed By: #### L 500.4050, L100.0100 #### [facility] [address] [place], [address] Sodium [Moles/Vol] 136 mmol/L Normal 136-145 [facility] Comment on above: Performed By: #### L 500.4050, L100.0100 #### [facility] [address] [place], [address] T PROT 8.0 g/dL Normal 6.4-8.2 [facility] Comment on above: Performed By: #### L 500.4050, L100.0100 #### [facility] [address] [place], [address] Urea nitrogen [Mass/Vol] 15 mg/dL Normal 7-18 [facility] Comment on above: Performed By: #### L 500.4050, L100.0100 #### [facility] [address] [place], [address] CT THORAX SCREENING W/O CONT RASTon 01-25-2024 CT THORAX SCREENING W/O CONTRAST ORIGINAL EXAMINATION: LOW DOSE SCREENING CT OF THE CHEST WITHOUT CONTRAST 01/20/2024 4:13 pm TECHNIQUE: Low dose lung cancer screening CT of the chest was performed without the administration of intravenous contrast. Multiplanar reformatted images are provided for review. Automated exposure control, iterative reconstruction, and/or weight based adjustment of the mA/kV was utilized to reduce the radiation dose to as low as reasonably achievable. COMPARISON: None. HISTORY: ORDERING SYSTEM PROVIDED HISTORY: Reason for Exam: screening for lung cancer 5ft 6in 190lb louse male. 35 pack years. current smoker. no current complaints. no family hx FINDINGS: Mediastinum: Scattered coronary artery calcifications. Nonaneurysmal thoracic aorta. No enlarged lymph nodes. A few calcified mediastinal lymph nodes as sequelae of prior granulomatous disease. Lungs/Pleura: No focal consolidation, pleural effusion or pneumothorax. Upper Abdomen: Limited images of the upper abdomen demonstrate no significant abnormality. Soft Tissues/Bones: Degenerative changes of the spine. IMPRESSION: No acute findings. LUNG RADS: Lung-RADS 1 - Negative (v2022) Management: 12 month screening LDCT Interpreted by: Juan Benavides Preliminary Report By: Juan Benavides Electronically signed By Juan Benavides Dictated Date: 01/25/2024 9:13:55 PM Prelim Date: 01/25/2024 9:28:05 PM Sign Date: 01/25/2024 9:28:05 PM Ordering Provider: JENNY CRAIG [facility] .GFRon 12-23-2023 GFR 69 ml/min/1.73sqm [facility] Comment on above: Result Comment: GFR Population mean for , Non- Americans Ages 20-29 = 116 mL/min/1.73 sq.m. Ages 30-39 = 107 mL/min/1.73 sq.m. Ages 40-49 = 99 mL/min/1.73 sq.m. Ages 50-59 = 93 mL/min/1.73 sq.m. Ages 60-69 = 85 mL/min/1.73 sq.m. Ages 70+ = 75 mL/min/1.73 sq.m. Chronic Kidney Disease: Less than 60 mL/min/1.73 square meters End Stage Renal Disease: Less than 15 mL/min/1.73 square meters Performed By: #### L IPID, CMP, GFR #### [place] [address] [place], [place] [address] GFR Non- 57 ml/min/1.73sqm [facility] Comment on above: Result Comment: GFR Population mean for , Non- Americans Ages 20-29 = 116 mL/min/1.73 sq.m. Ages 30-39 = 107 mL/min/1.73 sq.m. Ages 40-49 = 99 mL/min/1.73 sq.m. Ages 50-59 = 93 mL/min/1.73 sq.m. Ages 60-69 = 85 mL/min/1.73 sq.m. Ages 70+ = 75 mL/min/1.73 sq.m. Chronic Kidney Disease: Less than 60 mL/min/1.73 square meters End Stage Renal Disease: Less than 15 mL/min/1.73 square meters Performed By: #### L IPID, CMP, GFR #### [address] [address] CMPon 12-23-2023 Albumin Level 4.0 G/dL Normal 3.4-4.8 [facility] Comment on above: Performed By: #### L IPID, CMP, GFR #### [place] [id number] Albumin/Globulin [Mass ratio] 1.0 {ratio} Low 1.1-2.5 [facility] Comment on above: Performed By: #### L IPID, CMP, GFR #### [place] [address] ALP [Catalytic activity/Vol] 47 U/L Normal 40-135 [facility] Comment on above: Performed By: #### L IPID, CMP, GFR #### [place] [address] ALT [Catalytic activity/Vol] 28 U/L Normal 16-63 [facility] Comment on above: Performed By: #### L IPID, CMP, GFR #### [place] [id number] AST [Catalytic activity/Vol] 16 U/L Normal 10-40 [facility] Comment on above: Performed By: #### L IPID, CMP, GFR #### [place] [id number] Bili Total 0.5 mg/dL Normal 0.2-1.0 [facility] Comment on above: Result Comment: Use of this assay is not recommended for patients undergoing treatment with eltrombopag due to the potential for falsely elevated results. Performed By: #### L IPID, CMP, GFR #### [place] [id number] BUN/Creatinine Ratio 16 ratio Normal 7-27 [facility] Comment on above: Performed By: #### L IPID, CMP, GFR #### [address] [address] Calcium [Mass/Vol] 10.0 mg/dL Normal 8.4-10.2 [facility] Comment on above: Performed By: #### L IPID, CMP, GFR #### [address] [address] Chloride [Moles/Vol] 102 mmol/L Normal 98-107 [facility] Comment on above: Performed By: #### L IPID, CMP, GFR #### [address] [address] CO2 [Moles/Vol] 29 mmol/L Normal 23-31 [facility] Comment on above: Performed By: #### L IPID, CMP, GFR #### [address] [address] Creatinine [Mass/Vol] 1.29 mg/dL Normal 0.70-1.30 [facility] Comment on above: Result Comment: Test ing performed on [employer] Dimension EXL analyzer using a modified kinetic Joe technique. Performed By: #### L IPID, CMP, GFR #### [address] [address] Electrolyte Balance 8.0 mEq/L Normal 4.0-15.0 [facility] Comment on above: Performed By: #### L IPID, CMP, GFR #### [address] [address] Globulin 3.9 G/dL Normal [facility] Comment on above: Performed By: #### L IPID, CMP, GFR #### [address] [address] Glucose [Mass/Vol] 107 mg/dL Normal 80-115 [facility] Comment on above: Performed By: #### L IPID, CMP, GFR #### [address] [address] Potassium [Moles/Vol] 4.5 mmol/L Normal 3.5-5.1 [facility] Comment on above: Performed By: #### L IPID, CMP, GFR #### [facility] [address] [place], [place] [address] Sodium [Moles/Vol] 139 mmol/L Normal 136-145 [facility] Comment on above: Performed By: #### L IPID, CMP, GFR #### [place] [address] [place], [place] [address] Total Protein 7.9 G/dL Normal 6.4-8.2 [facility] Comment on above: Performed By: #### L IPID, CMP, GFR #### [place] [place], [place] [address] Urea nitrogen [Mass/Vol] 20 mg/dL High 7-18 [facility] Comment on above: Performed By: #### L IPID, CMP, GFR #### [place] [place], [place] [address] LABORATORYOrdered By: SYSTEM SYSTEM on 12-23-2023 Albumin BCP dye [Mass/Vol] 4.0 G/dL Normal 3.4 - 4.8 G/dL AO ADM SS Albumin/Globulin [Mass ratio] 1.0 {ratio} Low 1.1 - 2.5 ratio AO ADM SS ALP [Catalytic activity/Vol] 47 U/L Normal 40 - 135 U/L AO ADM SS ALT With P-5'-P [Catalytic activity/Vol] 28 U/L Normal 16 - 63 U/L AO ADM SS AST With P-5'-P [Catalytic activity/Vol] 16 U/L Normal 10 - 40 U/L AO ADM SS Bilirubin [Mass/Vol] 0.5 mg/dL Normal 0.2 - 1 .0 mg/dL AO ADM SS Comment on above: Interpretive Data: U se of this assay is not recommended for patients undergoing treatment with eltrombopag due to the potential for falsely elevated results. Calcium [Mass/Vol] 10.0 mg/dL Normal 8.4 - 10. 2 mg/dL AO ADM SS Chloride [Moles/Vol] 102 mmol/L Normal 98 - 10 7 mmol/L AO ADM SS CO2 [Moles/Vol] 29 mmol/L Normal 23 - 31 mmol/L AO ADM SS Creatinine [Mass/Vol] 1.29 mg/dL Normal 0.70 - 1.30 mg/dL AO ADM SS Comment on above: Interpretive Data: T esting performed on Siemens Dimension EXL analyzer using a modified kinetic Joe technique. Electrolyte Balance 8.0 mEq/L Normal 4.0 - 15 .0 mEq/L AO ADM SS GFR/1.73 sq M.predicted among blacks MDRD (S/P/Bld) [Vol rate/Area] 69 ml/min/1.73sqm Invalid Interpretation Code AO Chemistry S Comment on above: Interpretive Data: GFR Population mean for , Non- Americans Ages 20-29 = 116 mL/min/1.73 sq.m. Ages 30-39 = 107 mL/min/1.73 sq.m. Ages 40-49 = 99 mL/min/1.73 sq.m. Ages 50-59 = 93 mL/min/1.73 sq.m. Ages 60-69 = 85 mL/min/1.73 sq.m. Ages 70+ = 75 mL/min/1.73 sq.m. Chronic Kidney Disease: Less than 60 mL/min/1.73 square meters End Stage Renal Disease: Less than 15 mL/min/1.73 square meters GFR/1.73 sq M.predicted among non-blacks MDRD (S/P/Bld) [Vol rate/Area] 57 ml/min/1.73sqm Invalid Interpretation Code AO Chemistry S Comment on above: Interpretive Data: GFR Population mean for , Non- Americans Ages 20-29 = 116 mL/min/1.73 sq.m. Ages 30-39 = 107 mL/min/1.73 sq.m. Ages 40-49 = 99 mL/min/1.73 sq.m. Ages 50-59 = 93 mL/min/1.73 sq.m. Ages 60-69 = 85 mL/min/1.73 sq.m. Ages 70+ = 75 mL/min/1.73 sq.m. Chronic Kidney Disease: Less than 60 mL/min/1.73 square meters End Stage Renal Disease: Less than 15 mL/min/1.73 square meters Globulin 3.9 G/dL Invalid Interpretation Code AO ADM SS Glucose [Mass/Vol] 107 mg/dL Normal 80 - 115 mg/dL AO ADM SS Potassium [Moles/Vol] 4.5 mmol/L Normal 3.5 - 5.1 mmol/L AO ADM SS Protein [Mass/Vol] 7.9 G/dL Normal 6.4 - 8.2 G/dL AO ADM SS Sodium [Moles/Vol] 139 mmol/L Normal 136 - 145 mmol/L AO ADM SS Urea nitrogen [Mass/Vol] 20 mg/dL High 7 - 18 mg/dL AO ADM SS Urea nitrogen/Creatinine [Mass ratio] 16 ratio Normal 7 - 27 ratio AO ADM SS LABORATORYOrdered By: Sandra Rainey on 12-23-2023 Cholesterol [Mass/Vol] 162 mg/dL Normal 0 - 200 mg/dL AO ADM SS Comment on above: Interpretive Data: C holesterol Reference Interval: Less than 200 Desirable 200-239 Borderline high risk 240 and above High risk Cholesterol in HDL [Mass/Vol] 49 mg/dL Normal 40 - 60 mg/dL AO ADM SS Cholesterol in LDL [Mass/Vol] 89 mg/dL Normal 0 - 130 mg/dL AO ADM SS Triglyceride [Mass/Vol] 120 mg/dL Normal 0 - 150 mg/dL AO ADM SS Comment on above: Interpretive Data: T riglyceride Reference Interval: Less than 150 Normal 150-199 Borderline high risk 200-499 High risk 500 or higher Very high risk LIPIDon 12-23-2023 Cholesterol [Mass/Vol] 162 mg/dL Normal 0-200 [facility] Comment on above: Result Comment: Chol esterol Reference Interval: Less than 200 Desirable 200-239 Borderline high risk 240 and above High risk Performed By: #### L IPID, CMP, GFR #### [address] [address] Cholesterol in HDL [Mass/Vol] 49 mg/dL Normal 40-60 [facility] Comment on above: Performed By: #### L IPID, CMP, GFR #### [place] [address] [place], [place] [address] Cholesterol in LDL [Mass/Vol] 89 mg/dL Normal 0-130 [facility] Comment on above: Performed By: #### L IPID, CMP, GFR #### [address] [address] Triglyceride [Mass/Vol] 120 mg/dL Normal 0-150 [facility] Comment on above: Result Comment: Trig lyceride Reference Interval: Less than 150 Normal 150-199 Borderline high risk 200-499 High risk 500 or higher Very high risk Performed By: #### L IPID, CMP, GFR #### [address] [place] [id number] [place], [place] [address] CBC W/Diff, Automatedon 07- Absolute Lymph 2.10 X10 3/uL Normal 0.83-4.51 [facility] Comment on above: Performed By: #### L 100.0100, L500.4050 #### [facility] [address] [place], [address] Absolute Neut 5.7 X10 3/uL Normal 2.0-7.7 [facility] Comment on above: Performed By: #### L 100.0100, L500.4050 #### [facility] [address] [place], [address] Basophils/100 WBC (Bld) 1.3 % High 0-1 [facility] Comment on above: Performed By: #### L 100.0100, L500.4050 #### [facility] [address] [place], [address] Eosinophils/100 WBC (Bld) 7.3 % High 0-5 [facility] Comment on above: Performed By: #### L 100.0100, L500.4050 #### [facility] [address] [place], [address] Erythrocyte distribution width (RBC) [Ratio] 12.9 % Normal 11.6-14.6 [facility] Comment on above: Performed By: #### L 100.0100, L500.4050 #### [facility] [address] [place], [address] Hematocrit (Bld) [Volume fraction] 40.4 % Normal 40-54 [facility] Comment on above: Performed By: #### L 100.0100, L500.4050 #### [facility] [address] [place], [address] Hemoglobin (Bld) [Mass/Vol] 12.7 g/dL Low 13.0-16.5 [facility] Comment on above: Performed By: #### L 100.0100, L500.4050 #### [facility] [address] [place], [address] IG% 0.500 Normal 0.0-0.9 [facility] Comment on above: Result Comment: IG% - Immature Granulocytes (promyelocytes, myelocytes and metamyelocytes) > 1% indicates that a LEFT SHIFT is Present. Performed By: #### L 100.0100, L500.4050 #### [facility] [address] [place], [address] Lymphocytes/100 WBC (Bld) 21.6 % Normal 19-41 [facility] Comment on above: Performed By: #### L 100.0100, L500.4050 #### [facility] [address] [place], [address] MCH (RBC) [Entitic mass] 25.9 pg Low 27.0-32.0 [facility] Comment on above: Performed By: #### L 100.0100, L500.4050 #### [facility] [address] [place], [address] MCHC (RBC) [Mass/Vol] 31.4 g/dL Low 32-36 [facility] Comment on above: Performed By: #### L 100.0100, L500.4050 #### [facility] [address] [place], [address] MCV (RBC) [Entitic vol] 82.4 fL Normal 80-94 [facility] Comment on above: Performed By: #### L 100.0100, L500.4050 #### [facility] [address] [place], [address] Monocytes/100 WBC (Bld) 10.3 % High 0-10 [facility] Comment on above: Performed By: #### L 100.0100, L500.4050 #### [facility] [address] [place], [address] Neutrophils/100 WBC (Bld) 59.0 % Normal 47-70 [facility] Comment on above: Performed By: #### L 100.0100, L500.4050 #### [facility] [address] [place], [address] Nucleated RBC (Bld) [#/Vol] 0 10*3/uL Normal 0-5 [facility] Comment on above: Performed By: #### L 100.0100, L500.4050 #### [facility] [address] [place], [address] Platelet mean volume (Bld) [Entitic vol] 11.0 fL Normal 6.2-12.0 [facility] Comment on above: Performed By: #### L 100.0100, L500.4050 #### [facility] [address] [place], [address] Platelets (Bld) [#/Vol] 398 10*3/uL Normal 150-450 [facility] Comment on above: Performed By: #### L 100.0100, L500.4050 #### [facility] [address] [place], [address] RBC (Bld) [#/Vol] 4.90 10*6/uL Normal 4.6-6.2 [facility] Comment on above: Performed By: #### L 100.0100, L500.4050 #### [facility] [address] [place], [address] RDW SD 38.5 fl Normal 35.1-43.9 [facility] Comment on above: Performed By: #### L 100.0100, L500.4050 #### [facility] [address] [place], [address] WBC (Bld) [#/Vol] 9.7 10*3/uL Normal 4.4-11.0 [facility] Comment on above: Performed By: #### L 100.0100, L500.4050 #### [facility] [address] [place], [address] Comprehensive Metabolic Prof ilon 10-20-2023 Albumin [Mass/Vol] 3.8 g/dL Normal 3.2-5.0 [facility] Comment on above: Performed By: #### L 100.0100, L500.4050 #### [facility] [address] [place], [address] Albumin/Globulin [Mass ratio] 0.9 {ratio} Normal 0.9-2.4 [facility] Comment on above: Performed By: #### L 100.0100, L500.4050 #### [facility] [address] [place], [address] ALK P 40 U/L Low 45-117 [facility] Comment on above: Performed By: #### L 100.0100, L500.4050 #### [facility] [address] [place], [address] ALT [Catalytic activity/Vol] 23 U/L Normal 16-61 [facility] Comment on above: Performed By: #### L 100.0100, L500.4050 #### [facility] [address] [place], [address] AST [Catalytic activity/Vol] 20 U/L Normal 15-37 [facility] Comment on above: Performed By: #### L 100.0100, L500.4050 #### [facility] [address] [place], [address] Bilirubin [Mass/Vol] 0.40 mg/dL Normal 0.20-1.00 [facility] Comment on above: Result Comment: For patients on eltrombopag therapy, use of Dimension [place] TBIL is not recommended. Performed By: #### L 100.0100, L500.4050 #### [facility] [address] [place], [address] BUN/CRE 15.9 RATIO Normal 10-20 [facility] Comment on above: Performed By: #### L 100.0100, L500.4050 #### [facility] [address] [place], [address] CA,Total 9.7 mg/dL Normal 8.5-10.1 [facility] Comment on above: Performed By: #### L 100.0100, L500.4050 #### [facility] [address] [place], [address] Chloride [Moles/Vol] 102 mmol/L Normal 98-107 [facility] Comment on above: Performed By: #### L 100.0100, L500.4050 #### [facility] [address] [place], [address] CO2 [Moles/Vol] 25.0 mmol/L Normal 21.0-32.0 [facility] Comment on above: Performed By: #### L 100.0100, L500.4050 #### [facility] [address] [place], [address] Creatinine [Mass/Vol] 1.38 mg/dL High 0.70-1.30 [facility] Comment on above: Result Comment: The validity of the calculated GFR GFRAA in patients over 70 years has not been determined. Clinical correlation is essential. Performed By: #### L 100.0100, L500.4050 #### [facility] [address] [place], [address] EST GFR - AA 68 mL/min Normal >60 [facility] Comment on above: Result Comment: Afri can [place] GFR Calc Performed By: #### L 100.0100, L500.4050 #### [facility] [address] [place], [address] GAP 8 Normal 5-15 [facility] Comment on above: Performed By: #### L 100.0100, L500.4050 #### [facility] [address] [place], [address] GFR/1.73 sq M.predicted among non-blacks MDRD (S/P/Bld) [Vol rate/Area] 56 mL/min/{1.73_m2} Low >60 [facility] Comment on above: Result Comment: Non- GFR Calc Performed By: #### L 100.0100, L500.4050 #### [facility] [address] [place], [address] Globulin (S) [Mass/Vol] 4.3 g/dL High 2.2-4.2 [facility] Comment on above: Performed By: #### L 100.0100, L500.4050 #### [facility] [address] [place], [address] Glucose [Mass/Vol] 110 mg/dL High 74-106 [facility] Comment on above: Result Comment: Fast ing Glucose result from 100 to 125 mg/dL suggests IMPAIRED HOMEOSTASIS per A.D.A. criteria. Performed By: #### L 100.0100, L500.4050 #### [facility] [address] [place], [address] Potassium [Moles/Vol] 4.4 mmol/L Normal 3.5-5.1 [facility] Comment on above: Performed By: #### L 100.0100, L500.4050 #### [facility] [address] [place], [address] Sodium [Moles/Vol] 135 mmol/L Low 136-145 [facility] Comment on above: Performed By: #### L 100.0100, L500.4050 #### [facility] [address] [place], [address] T PROT 8.1 g/dL Normal 6.4-8.2 [facility] Comment on above: Performed By: #### L 100.0100, L500.4050 #### [facility] [address] [place], [address] Urea nitrogen [Mass/Vol] 22 mg/dL High 7-18 [facility] Comment on above: Performed By: #### L 100.0100, L500.4050 #### [facility] [address] [place], [address] .GFRon 08-24-2023 GFR 69 ml/min/1.73sqm Normal [facility] ([place]) Comment on above: Result Comment: GFR Population mean for , Non- Americans Ages 20-29 = 116 mL/min/1.73 sq.m. Ages 30-39 = 107 mL/min/1.73 sq.m. Ages 40-49 = 99 mL/min/1.73 sq.m. Ages 50-59 = 93 mL/min/1.73 sq.m. Ages 60-69 = 85 mL/min/1.73 sq.m. Ages 70+ = 75 mL/min/1.73 sq.m. Chronic Kidney Disease: Less than 60 mL/min/1.73 square meters End Stage Renal Disease: Less than 15 mL/min/1.73 square meters Performed By: #### C MP, A1C, GFR, LIPID #### [address] [place] [id number] [place], [place] [address] GFR Non- 57 ml/min/1.73sqm Normal [facility] ([place]) Comment on above: Result Comment: GFR Population mean for , Non- Americans Ages 20-29 = 116 mL/min/1.73 sq.m. Ages 30-39 = 107 mL/min/1.73 sq.m. Ages 40-49 = 99 mL/min/1.73 sq.m. Ages 50-59 = 93 mL/min/1.73 sq.m. Ages 60-69 = 85 mL/min/1.73 sq.m. Ages 70+ = 75 mL/min/1.73 sq.m. Chronic Kidney Disease: Less than 60 mL/min/1.73 square meters End Stage Renal Disease: Less than 15 mL/min/1.73 square meters Performed By: #### C MP, A1C, GFR, LIPID #### [address] [address] A1Con 08-24-2023 HbA1c (Bld) [Mass fraction] 5.8 % Normal 4.3-6.4 [facility] ([place]) Comment on above: Performed By: #### C MP, A1C, GFR, LIPID #### [address] [address] CMPon 08-24-2023 Albumin Level 4.0 G/dL Normal 3.4-4.8 [facility] ([place]) Comment on above: Performed By: #### C MP, A1C, GFR, LIPID #### [address] [address] Albumin/Globulin [Mass ratio] 1.0 {ratio} Low 1.1-2.5 [facility] ([place] Comment on above: Performed By: #### C MP, A1C, GFR, LIPID #### [address] [address] ALP [Catalytic activity/Vol] 44 U/L Normal 40-135 [facility] ([place] Comment on above: Performed By: #### C MP, A1C, GFR, LIPID #### [address] [address] ALT [Catalytic activity/Vol] 26 U/L Normal 16-63 [facility] ([place] Comment on above: Performed By: #### C MP, A1C, GFR, LIPID #### [address] [address] AST [Catalytic activity/Vol] 17 U/L Normal 10-40 [facility] ([place] Comment on above: Performed By: #### C MP, A1C, GFR, LIPID #### [address] [address] Bili Total 0.6 mg/dL Normal 0.2-1.0 [facility] ([place] Comment on above: Result Comment: Use of this assay is not recommended for patients undergoing treatment with eltrombopag due to the potential for falsely elevated results. Performed By: #### C MP, A1C, GFR, LIPID #### [address] [address] BUN/Creatinine Ratio 19 ratio Normal 7-27 [facility] Comment on above: Performed By: #### C MP, A1C, GFR, LIPID #### [address] [address] Calcium [Mass/Vol] 9.5 mg/dL Normal 8.4-10.2 [facility] ([place]) Comment on above: Performed By: #### C MP, A1C, GFR, LIPID #### [address] [address] Chloride [Moles/Vol] 102 mmol/L Normal 98-107 [facility] Comment on above: Performed By: #### C MP, A1C, GFR, LIPID #### [address] [address] CO2 [Moles/Vol] 29 mmol/L Normal 23-31 [facility] ([place] Comment on above: Performed By: #### C MP, A1C, GFR, LIPID #### [address] [address] Creatinine [Mass/Vol] 1.29 mg/dL Normal 0.70-1.30 [facility] ([place]) Comment on above: Performed By: #### C MP, A1C, GFR, LIPID #### [address] [address] Electrolyte Balance 9.0 mEq/L Normal 4.0-15.0 [facility] ([place]) Comment on above: Performed By: #### C MP, A1C, GFR, LIPID #### [address] [address] Globulin 4.0 G/dL Normal [facility] ([place]) Comment on above: Performed By: #### C MP, A1C, GFR, LIPID #### [address] [address] Glucose [Mass/Vol] 110 mg/dL Normal 80-115 [facility] ([place]) Comment on above: Performed By: #### C MP, A1C, GFR, LIPID #### [address] [address] Potassium [Moles/Vol] 4.6 mmol/L Normal 3.5-5.1 [facility] ([place]) Comment on above: Performed By: #### C MP, A1C, GFR, LIPID #### [address] [address] Sodium [Moles/Vol] 140 mmol/L Normal 136-145 [facility] ([place]) Comment on above: Performed By: #### C MP, A1C, GFR, LIPID #### [address] [address] Total Protein 8.0 G/dL Normal 6.4-8.2 [facility] ([place]) Comment on above: Performed By: #### C MP, A1C, GFR, LIPID #### [address] [address] Urea nitrogen [Mass/Vol] 24 mg/dL High 7-18 [facility] ([place]) Comment on above: Performed By: #### C MP, A1C, GFR, LIPID #### [address] [address] LABORATORYOrdered By: SYSTEM SYSTEM on 08-24-2023 Albumin BCP dye [Mass/Vol] 4.0 G/dL Normal 3.4 - 4.8 G/dL AO ADM SS Albumin/Globulin [Mass ratio] 1.0 {ratio} Low 1.1 - 2.5 ratio AO ADM SS ALP [Catalytic activity/Vol] 44 U/L Normal 40 - 135 U/L AO ADM SS ALT With P-5'-P [Catalytic activity/Vol] 26 U/L Normal 16 - 63 U/L AO ADM SS AST With P-5'-P [Catalytic activity/Vol] 17 U/L Normal 10 - 40 U/L AO ADM SS Bilirubin [Mass/Vol] 0.6 mg/dL Normal 0.2 - 1 .0 mg/dL AO ADM SS Comment on above: Interpretive Data: U se of this assay is not recommended for patients undergoing treatment with eltrombopag due to the potential for falsely elevated results. Calcium [Mass/Vol] 9.5 mg/dL Normal 8.4 - 10. 2 mg/dL AO ADM SS Chloride [Moles/Vol] 102 mmol/L Normal 98 - 10 7 mmol/L AO ADM SS CO2 [Moles/Vol] 29 mmol/L Normal 23 - 31 mmol/L AO ADM SS Creatinine [Mass/Vol] 1.29 mg/dL Normal 0.70 - 1.30 mg/dL AO ADM SS Electrolyte Balance 9.0 mEq/L Normal 4.0 - 15 .0 mEq/L AO ADM SS GFR/1.73 sq M.predicted among blacks MDRD (S/P/Bld) [Vol rate/Area] 69 ml/min/1.73sqm Invalid Interpretation Code AO Chemistry S Comment on above: Interpretive Data: GFR Population mean for , Non- Americans Ages 20-29 = 116 mL/min/1.73 sq.m. Ages 30-39 = 107 mL/min/1.73 sq.m. Ages 40-49 = 99 mL/min/1.73 sq.m. Ages 50-59 = 93 mL/min/1.73 sq.m. Ages 60-69 = 85 mL/min/1.73 sq.m. Ages 70+ = 75 mL/min/1.73 sq.m. Chronic Kidney Disease: Less than 60 mL/min/1.73 square meters End Stage Renal Disease: Less than 15 mL/min/1.73 square meters GFR/1.73 sq M.predicted among non-blacks MDRD (S/P/Bld) [Vol rate/Area] 57 ml/min/1.73sqm Invalid Interpretation Code AO Chemistry S Comment on above: Interpretive Data: GFR Population mean for , Non- Americans Ages 20-29 = 116 mL/min/1.73 sq.m. Ages 30-39 = 107 mL/min/1.73 sq.m. Ages 40-49 = 99 mL/min/1.73 sq.m. Ages 50-59 = 93 mL/min/1.73 sq.m. Ages 60-69 = 85 mL/min/1.73 sq.m. Ages 70+ = 75 mL/min/1.73 sq.m. Chronic Kidney Disease: Less than 60 mL/min/1.73 square meters End Stage Renal Disease: Less than 15 mL/min/1.73 square meters Globulin 4.0 G/dL Invalid Interpretation Code AO ADM SS Glucose [Mass/Vol] 110 mg/dL Normal 80 - 115 mg/dL AO ADM SS HbA1c (Bld) [Mass fraction] 5.8 % Normal 4.3 - 6.4 % AO ADM SS Potassium [Moles/Vol] 4.6 mmol/L Normal 3.5 - 5.1 mmol/L AO ADM SS Protein [Mass/Vol] 8.0 G/dL Normal 6.4 - 8.2 G/dL AO ADM SS Sodium [Moles/Vol] 140 mmol/L Normal 136 - 145 mmol/L AO ADM SS Urea nitrogen [Mass/Vol] 24 mg/dL High 7 - 18 mg/dL AO ADM SS Urea nitrogen/Creatinine [Mass ratio] 19 ratio Normal 7 - 27 ratio AO ADM SS LABORATORYOrdered By: Panchito Pierre on 08-24-2023 Cholesterol [Mass/Vol] 233 mg/dL High 0 - 200 mg/dL AO ADM SS Comment on above: Interpretive Data: C holesterol Reference Interval: Less than 200 Desirable 200-239 Borderline high risk 240 and above High risk Cholesterol in HDL [Mass/Vol] 52 mg/dL Normal 40 - 60 mg/dL AO ADM SS Cholesterol in LDL [Mass/Vol] 159 mg/dL High 0 - 130 mg/dL AO ADM SS Triglyceride [Mass/Vol] 111 mg/dL Normal 0 - 150 mg/dL AO ADM SS Comment on above: Interpretive Data: T riglyceride Reference Interval: Less than 150 Normal 150-199 Borderline high risk 200-499 High risk 500 or higher Very high risk LIPIDon 08-24-2023 Cholesterol [Mass/Vol] 233 mg/dL High 0-200 [facility] ([place]) Comment on above: Result Comment: Chol esterol Reference Interval: Less than 200 Desirable 200-239 Borderline high risk 240 and above High risk Performed By: #### C MP, A1C, GFR, LIPID #### [address] [place], [place] [address] Cholesterol in HDL [Mass/Vol] 52 mg/dL Normal 40-60 [facility] ([place]) Comment on above: Performed By: #### C MP, A1C, GFR, LIPID #### [address] [address] Cholesterol in LDL [Mass/Vol] 159 mg/dL High 0-130 [facility] ([place]) Comment on above: Performed By: #### C MP, A1C, GFR, LIPID #### [address] [address] Triglyceride [Mass/Vol] 111 mg/dL Normal 0-150 [facility] ([place]) Comment on above: Result Comment: Trig lyceride Reference Interval: Less than 150 Normal 150-199 Borderline high risk 200-499 High risk 500 or higher Very high risk Performed By: #### C MP, A1C, GFR, LIPID #### [address] [address] Cerv Spine 2 or 3 Viewson Cerv Spine 2 or 3 Views [facility] [address] [place] [address] Cerv Spine 2 or 3 Views MR#: [id number] Acct: [id number] Name: BLACK GRIMES Rep #: [id number] : 1965 M 58 From: Bruce garcia MD PCP: KATE Lopez Status: DEP AMB Study: Cerv Spine 2 or 3 Views Date of Exam: 06/30/23 Exam# [id number] Ordering Dr: Yonas Solares DO [id number] STUDY: X-RAY - CERVICAL SPINE REASON FOR EXAM: Male, 58 years old. Neck pain. TECHNIQUE: 3 view(s) of the cervical spine were obtained. COMPARISON: None FINDINGS: Normal anterior atlantoaxial articulation. Normal odontoid process. There is straightening of the normal cervical lordosis. There is evidence of a anterior spondylosis at the C3-C4, C4-C5, C5-C6 and C6-C7 levels. Moderate degree of disc space narrowing at the C6-C7 level. Normal disc space heights. Normal visualized intervertebral neuroforamina. There are atherosclerotic vascular calcifications of the carotid arteries. RAD/Cerv Spine 2 or 3 Views IMPRESSION: Spondylosis and disc space narrowing as described. Loss of the normal cervical lordosis. Electronically Signed: Bruce More MD at 8:39 EDT Reading Location ID and State: [facility] / [place] , Service support , CC: KATE Craig; Dr. Yonas Solares DO [employer]: Signed Normal [facility] Orthopedic Visit Reporton Orthopedic Visit Report [facility] [address] [place] [id number] OFFICE VISIT Date of Service: 06/30/23 MR#: [id number] Acct: [id number] Name: BLACK GRIMES Rep #: [id number] : 1965 Provider: Dr. Yonas rey DO Age/Sex: 58/M Location: [email or web address] Status: Signed Intake Vital Signs 04/12/20 13:41 06/30/23 08:41 Height 5 ft 6 in 5 ft 6 in Weight: 194 lb BMI 31.3 Intake Visit Reasons: CERVICAL SPINE Chief Complaint: neck pain Is patient in pain?: Yes (neck) Pain scale (1-10): 2 Allergies lisinopril Allergy (Verified 06/30/23 08:48) unknown Medications apremilast 30 mg tablet (Otezla) 30 mg PO BID 04/12/20 [History Confirmed 04/12/20] fenofibrate micronized 134 mg capsule 134 mg PO DAILY 04/12/20 [History Confirmed 04/12/20] hydrochlorothiazide 25 mg tablet 25 mg PO DAILY 04/12/20 [History Confirmed 04/12/20] amlodipine 5 mg tablet 5 mg PO QDAY 06/30/23 [History Confirmed 06/30/23] [facility] Social History (Updated 06/30/23 @ 08:48 by Bindu Asencio) Smoking Status: Current every day smoker tobacco type: cigarettes alcohol intake: current alcohol intake frequency: a few times a week substance use type: does not use HPI CERVICAL SPINE Chief Complaint: neck pain Details: This documentation accurately reflects the service provided and the decisions made by me, Dr. Yonas Solares, DO 06/30/23 0839. Part of today???s visit was documented by [ ], acting as scribe. BLACK GRIMES is a 58 year old M here today for neck pain and itching. Pt. was referred by Dr. Mims. Pt. was seen by her thinking he had psoriatic arthritis. He states he has been experiencing neck and left arm pain burning and itching for a year. Dr. Mims believes his symptoms are d/t a pinched nerve in his cervical spine. He denies previous neck injury or surgery. He denies numbness or tingling. Black (who goes by [facility]) is a very pleasant gentleman 58 years old who presents in the company of his Wilma. His main complaint to me is that he has itching in his forearm the left 1 being worse than the right. This has been going on for some time now. It is interesting that he has been a welder machine operator for 42 years. He states that the way he welts his left forearm always gets hotter than the right one while he is working. I will expand on the significance of this later in this note. He does not really have any neck pain to speak of. Every now and then it gets stiff but he states that oftentimes when he is working he has to be looking up or looking down for long periods of time and that of course gives him a stiff neck for a little while but he always recovers. He does not describe any radicular type symptoms. Dr. Mims has given him some cream that he puts on in the morning and it helps his itching tremendously. By the end of the day however it wears out and it begins itching quite a bit. The itching is in the posterior aspect of both forearms again worse on the left than the right. On examination it is noted that he has no pain with flexion or extension of his cervical spine. He has a negative Spurling's to either side. He has 2+ triceps biceps and brachioradialis reflexes bilaterally. He has excellent motor strength of all the major muscle groups of both upper extremities. He has no long tract signs. Clonus is absent and Babinski's are downgoing. He has no hyperreflexia in the lower extremities. Plain x-rays of his cervical spine demonstrate that he has calcification of the anterior disks at C3-4, C4-5, C5-6, and C6-7. 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 It is my understanding that this condition occurs in people who have a lot of sun exposure. The second most common is that of a cervical nerve etiology such as a ruptured disc involving the C5-6 level thus involving the C6 nerve root. My speculation however is that this is related to his occupation. His left forearm gets hotter than the right 1 during his work. And subsequently he has more itching on the back of the left forearm that he does the right forearm. Nonetheless it would behoove us to order an MRI scan of the cervical spine. I will see him after that diagnostic test and make further recommendations. Coding Level of Care Code Off vis,new,level 3 Diagnoses Brachioradial pruritus L29.9 DDD (degenerative disc disease), cervical M50.30 Time Spent (min) 300 Assessment and Plan Assessment and Plan (1) Brachioradial pruritus: Status: Acute (2) DDD (degenerative disc disease), cervical: Status: Acute Orders: Orders Cerv Spine 2 or 3 Views Today M54.2 - Cervicalgia Spine Cervical (Routine) Today L29.9 - Pruritus, unspecified, M50.30 - Other cervical disc degeneration, unspecified cervical region 06/30/23 1344 Date (more content not included)... Normal [facility] 05-30-2023 TSH Qn 1.22 m[IU]/L Normal 0.36-3.74 [facility] ([place]) Comment on above: Performed By: #### T #### Mario Alberto [address] [address] .GFRon 05-26-2023 GFR 69 ml/min/1.73sqm Normal [facility] ([place]) Comment on above: Result Comment: GFR Population mean for , Non- Americans Ages 20-29 = 116 mL/min/1.73 sq.m. Ages 30-39 = 107 mL/min/1.73 sq.m. Ages 40-49 = 99 mL/min/1.73 sq.m. Ages 50-59 = 93 mL/min/1.73 sq.m. Ages 60-69 = 85 mL/min/1.73 sq.m. Ages 70+ = 75 mL/min/1.73 sq.m. Chronic Kidney Disease: Less than 60 mL/min/1.73 square meters End Stage Renal Disease: Less than 15 mL/min/1.73 square meters Performed By: #### C MP, PSA, A1C, LIPID, GFR #### Mario Alberto [address] [address] GFR Non- 57 ml/min/1.73sqm Normal [facility] ([place]) Comment on above: Result Comment: GFR Population mean for , Non- Americans Ages 20-29 = 116 mL/min/1.73 sq.m. Ages 30-39 = 107 mL/min/1.73 sq.m. Ages 40-49 = 99 mL/min/1.73 sq.m. Ages 50-59 = 93 mL/min/1.73 sq.m. Ages 60-69 = 85 mL/min/1.73 sq.m. Ages 70+ = 75 mL/min/1.73 sq.m. Chronic Kidney Disease: Less than 60 mL/min/1.73 square meters End Stage Renal Disease: Less than 15 mL/min/1.73 square meters Performed By: #### C MP, PSA, A1C, LIPID, GFR #### Mario Alberto [address] [address] A1Con 05-26-2023 HbA1c (Bld) [Mass fraction] 5.4 % Normal 4.3-6.4 [facility] ([place]) Comment on above: Performed By: #### C MP, PSA, A1C, LIPID, GFR #### [address] [address] CMPon 05-26-2023 Albumin Level 3.7 G/dL Normal 3.4-4.8 [facility] ([place]) Comment on above: Performed By: #### C MP, PSA, A1C, LIPID, GFR #### [address] [address] Albumin/Globulin [Mass ratio] 0.9 {ratio} Low 1.1-2.5 [facility] ([place]) Comment on above: Performed By: #### C MP, PSA, A1C, LIPID, GFR #### [address] [address] ALP [Catalytic activity/Vol] 42 U/L Normal 40-135 [facility] ([place] Comment on above: Performed By: #### C MP, PSA, A1C, LIPID, GFR #### [address] [address] ALT [Catalytic activity/Vol] 30 U/L Normal 16-63 [facility] ([place]) Comment on above: Performed By: #### C MP, PSA, A1C, LIPID, GFR #### [address] [address] AST [Catalytic activity/Vol] 20 U/L Normal 10-40 [facility] ([place]) Comment on above: Performed By: #### C MP, PSA, A1C, LIPID, GFR #### [address] [address] Bili Total 0.4 mg/dL Normal 0.2-1.0 [facility] ([place]) Comment on above: Result Comment: Use of this assay is not recommended for patients undergoing treatment with eltrombopag due to the potential for falsely elevated results. Performed By: #### C MP, PSA, A1C, LIPID, GFR #### [address] [address] BUN/Creatinine Ratio 18 ratio Normal 7-[facility] Comment on above: Performed By: #### C MP, PSA, A1C, LIPID, GFR #### [address] [address] Calcium [Mass/Vol] 9.7 mg/dL Normal 8.4-10.2 [facility] ([place]) Comment on above: Performed By: #### C MP, PSA, A1C, LIPID, GFR #### [address] [address] Chloride [Moles/Vol] 103 mmol/L Normal 98-107 [facility] Comment on above: Performed By: #### C MP, PSA, A1C, LIPID, GFR #### [address] [address] CO2 [Moles/Vol] 29 mmol/L Normal 23-31 [facility] ([place] Comment on above: Performed By: #### C MP, PSA, A1C, LIPID, GFR #### [address] [address] Creatinine [Mass/Vol] 1.29 mg/dL Normal 0.70-1.30 [facility] ([place]) Comment on above: Performed By: #### C MP, PSA, A1C, LIPID, GFR #### [address] [address] Electrolyte Balance 8.0 mEq/L Normal 4.0-15.0 [facility] ([place]) Comment on above: Performed By: #### C MP, PSA, A1C, LIPID, GFR #### [address] [address] Globulin 3.9 G/dL Normal [facility] ([place]) Comment on above: Performed By: #### C MP, PSA, A1C, LIPID, GFR #### [address] [address] Glucose [Mass/Vol] 103 mg/dL Normal 80-115 [facility] ([place]) Comment on above: Performed By: #### C MP, PSA, A1C, LIPID, GFR #### [address] [address] Potassium [Moles/Vol] 5.0 mmol/L Normal 3.5-5.1 [facility] ([place]) Comment on above: Performed By: #### C MP, PSA, A1C, LIPID, GFR #### [address] [address] Sodium [Moles/Vol] 140 mmol/L Normal 136-145 [facility] ([place] Comment on above: Performed By: #### C MP, PSA, A1C, LIPID, GFR #### [address] [address] Total Protein 7.6 G/dL Normal 6.4-8.2 [facility] ([place]) Comment on above: Performed By: #### C MP, PSA, A1C, LIPID, GFR #### [address] [address] Urea nitrogen [Mass/Vol] 23 mg/dL High 7-18 [facility] ([place] Comment on above: Performed By: #### C MP, PSA, A1C, LIPID, GFR #### [address] [address] LIPIDon 05-26-2023 Cholesterol [Mass/Vol] 232 mg/dL High 0-200 [facility] ([place]) Comment on above: Result Comment: Chol esterol Reference Interval: Less than 200 Desirable 200-239 Borderline high risk 240 and above High risk Performed By: #### C MP, PSA, A1C, LIPID, GFR #### [address] [address] Cholesterol in HDL [Mass/Vol] 53 mg/dL Normal 40-60 [facility] ([place] Comment on above: Performed By: #### C MP, PSA, A1C, LIPID, GFR #### [address] [address] Cholesterol in LDL [Mass/Vol] 160 mg/dL High 0-130 [facility] ([place] Comment on above: Performed By: #### C MP, PSA, A1C, LIPID, GFR #### [address] [place], [place] [address] Triglyceride [Mass/Vol] 94 mg/dL Normal 0-150 [facility] ([place] Comment on above: Result Comment: Trig lyceride Reference Interval: Less than 150 Normal 150-199 Borderline high risk 200-499 High risk 500 or higher Very high risk Performed By: #### C MP, PSA, A1C, LIPID, GFR #### [address] [place], [place] [address] PSAon 05-26-2023 Prostate Specific Antigen 1.56 ng/mL Normal 0.00-4.00 [facility] ([place]) Comment on above: Performed By: #### C MP, PSA, A1C, LIPID, GFR #### [address] [place], [place] [address] Absolute lymphocyte countOrd ered By: Brook Butler on 04-28-2023 Lymphocytes Auto (Unsp spec) [#/Vol] 1.86 10*3/uL 0.83-4.51 [facility] Automated lymphocyte count a s percentage of total leukocytesOrdered By: Brook Butler on 04-28-2023 Lymphocytes/100 WBC Auto (Unsp spec) 19.5 % 19-41 [facility] Basophil percentageOrdered B y: Brook Butler on 04-28-2023 Basophils/100 WBC (Bld) 1.1 % 0-1 [facility] Bilirubin [Mass/Vol] 0.30 mg/dL 0.20-1.00 [facility] Comment on above: For patients on eltr ombopag therapy, use of Dimension [place] TBIL is not recommended. Chloride [Moles/Vol] 105 mmol/L 98-107 [facility] Eosinophils/100 WBC (Bld) 8.2 % 0-5 [facility] Glucose [Mass/Vol] 100 mg/dL 74-106 [facility] Comment on above: Fasting Glucose resu lt from 100 to 125 mg/dL suggests IMPAIRED HOMEOSTASIS per A.D.A. criteria. Hemoglobin (Bld) [Mass/Vol] 12.1 g/dL 13.0-16.5 [facility] Monocytes/100 WBC (Bld) 9.7 % 0-10 [facility] Neutrophils (Bld) [#/Vol] 5.8 10*3/uL 2.0-7.7 [facility] Neutrophils/100 WBC (Bld) 61.0 % 47-70 [facility] Potassium [Moles/Vol] 3.6 mmol/L 3.5-5.1 [facility] Protein [Mass/Vol] 7.4 g/dL 6.4-8.2 [facility] Sodium [Moles/Vol] 139 mmol/L 136-145 [facility] WBC (Bld) [#/Vol] 9.5 10*3/uL 4.4-11.0 [facility] Determination of erythrocyte mean corpuscular volume (MCV)Ordered By: Broko Butler on 04-28-2023 MCV (RBC) [Entitic vol] 82.2 fL 80-94 [facility] Erythrocyte distribution wid th ratioOrdered By: Brook Butler on 04-28-2023 Erythrocyte distribution width (RBC) [Ratio] 12.9 % 11.6-14.6 [facility] Erythrocyte distribution wid th standard deviationOrdered By: Brook Butler on 04-28-2023 Erythrocyte distribution width (RBC) [Entitic vol] 38.3 fL 35.1-43.9 [facility] Hematocrit Auto (Bld) [Volum e fraction]Ordered By: Brook Butler on 04-28-2023 Hematocrit (Bld) [Volume fraction] 38.4 % 40-54 [facility] Immature granulocytes/100 WB C Auto (Bld)Ordered By: Brook Butler on 04-28-2023 Immature granulocytes/100 WBC (Bld) 0.500 % 0.0-0.9 [facility] Comment on above: IG% - Immature Granu locytes (promyelocytes, myelocytes and metamyelocytes) > 1% indicates that a LEFT SHIFT is Present. Laboratory - Chemistry and C hemistry - challengeOrdered By: Brook Butler on 04-28-2023 Albumin/Globulin [Mass ratio] 0.9 {ratio} 0.9-2.4 [facility] ALP [Catalytic activity/Vol] 35 U/L 45-117 [facility] ALT [Catalytic activity/Vol] 26 U/L 16-61 [facility] CO2 [Moles/Vol] 29.0 mmol/L 21.0-32.0 [facility] Globulin (S) [Mass/Vol] 3.8 g/dL 2.2-4.2 [facility] Urea nitrogen/Creatinine [Mass ratio] 14.3 mg/mg 10-20 [facility] Laboratory - Hematology and Cell countsOrdered By: Brook Butler on 04-28-2023 MCH (RBC) [Entitic mass] 25.9 pg 27.0-32.0 [facility] MCHC (RBC) [Mass/Vol] 31.5 g/dL 32-36 [facility] Nucleated RBC/100 WBC (Bld) [Ratio] 0 % 0-5 [facility] Platelets (Bld) [#/Vol] 443 10*3/uL 150-450 [facility] No Panel InformationOrdered By: Brook Butler on 04-28-2023 Estimated GFR (MDRD) Amer 71 mL/min >60 [facility] Comment on above: GFR Calc Estimated GFR (MDRD) Non-Af Amer 58 mL/min >60 [facility] Comment on above: Non- GFR Calc Platelet mean volume Oneil-Ec ker (Bld) [Entitic vol]Ordered By: Brook Butler on 04-28-2023 Platelet mean volume (Bld) [Entitic vol] 10.4 fL 6.2-12.0 [facility] RBC Auto (Bld) [#/Vol]Ordere d By: Brook Butler on 04-28-2023 RBC (Bld) [#/Vol] 4.67 10*6/uL 4.6-6.2 [facility] Serum or plasma calcium yaima urement (mass/volume)Ordered By: Brook Butler on 04-28-2023 Calcium [Mass/Vol] 9.7 mg/dL 8.5-10.1 [facility] Serum or plasma creatinine m easurement (mass/volume)Ordered By: Brook Butler on 04-28-2023 Creatinine [Mass/Vol] 1.33 mg/dL 0.70-1.30 [facility] Comment on above: The validity of the calculated GFR & GFRAA in patients over 70 years has not been determined. Clinical correlation is essential. Serum or plasma urea nitroge n measurement (mass/volume)Ordered By: Brook Butler on 04-28-2023 Urea nitrogen [Mass/Vol] 19 mg/dL 7-18 [facility] Thin prep Papanicolaou smear with manual screeningOrdered By: Brook Butler on 04-28-2023 Thin prep Papanicolaou smear with manual screening 3.6 g/dL 3.2-5.0 [facility] Thin prep Papanicolaou smear with manual screening 20 U/L 15-37 [facility] Thin prep Papanicolaou smear with manual screening 5 5-15 [facility] Absolute lymphocyte countOrd ered By: Brook Butler on 02-11-2023 Lymphocytes Auto (Unsp spec) [#/Vol] 1.96 10*3/uL 0.83-4.51 [facility] Basophil percentageOrdered B y: Brook Butler on 02-11-2023 Basophil percentage Not Reportable [facility] Bilirubin [Mass/Vol] 0.40 mg/dL 0.20-1.00 [facility] Comment on above: For patients on eltr ombopag therapy, use of Dimension [place] TBIL is not recommended. Chloride [Moles/Vol] 100 mmol/L 98-107 [facility] Glucose [Mass/Vol] 115 mg/dL 74-106 [facility] Comment on above: Fasting Glucose resu lt from 100 to 125 mg/dL suggests IMPAIRED HOMEOSTASIS per A.D.A. criteria. Neutrophils (Bld) [#/Vol] 7.3 10*3/uL 2.0-7.7 [facility] Potassium [Moles/Vol] 3.8 mmol/L 3.5-5.1 [facility] Protein [Mass/Vol] 8.0 g/dL 6.4-8.2 [facility] Sodium [Moles/Vol] 134 mmol/L 136-145 [facility] WBC (Bld) [#/Vol] 10.9 10*3/uL 4.4-11.0 [facility] Blood eosinophils/100 leukoc ytesOrdered By: Brook Butler on 02-11-2023 Eosinophils/100 WBC (Bld) 5 % 0-5 [facility] Blood erythrocytes count (nu mber/volume)Ordered By: Brook Butler on 02-11-2023 RBC (Bld) [#/Vol] 4.84 10*6/uL 4.6-6.2 [facility] Blood hemoglobin measurement (mass/volume)Ordered By: Brook Butler on 02-11-2023 Hemoglobin (Bld) [Mass/Vol] 12.8 g/dL 13.0-16.5 [facility] Blood lymphocytes/100 leukoc ytesOrdered By: Brook Butler on 02-11-2023 Lymphocytes/100 WBC (Bld) 18 % 19-41 [facility] Blood monocytes/100 leukocyt esOrdered By: Brook Butler on 02-11-2023 Monocytes/100 WBC (Bld) 5 % 0-10 [facility] Blood platelet adequacy dete ction by light microscopyOrdered By: Brook Butler on 02-11-2023 Platelets LM Ql (Bld) ADEQUATE ADEQ [facility] Blood platelet mean volumeOr dered By: Brook Butler on 02-11-2023 Platelet mean volume (Bld) [Entitic vol] 10.4 fL 6.2-12.0 [facility] Blood segmented neutrophils/ 100 leukocytesOrdered By: Brook Butler on 02-11-2023 Segmented neutrophils/100 WBC (Bld) 67 % 47-70 [facility] Determination of erythrocyte mean corpuscular volume (MCV)Ordered By: Brook Butler on 02-11-2023 MCV (RBC) [Entitic vol] 86.0 fL 80-94 [facility] Hematocrit Auto (Bld) [Volum e fraction]Ordered By: Brook Butler on 02-11-2023 Hematocrit (Bld) [Volume fraction] 41.6 % 40-54 [facility] Laboratory - Chemistry and C hemistry - challengeOrdered By: Brook Butler on 02-11-2023 ALP [Catalytic activity/Vol] 44 U/L 45-117 [facility] ALT [Catalytic activity/Vol] 23 U/L 16-61 [facility] CO2 [Moles/Vol] 27.0 mmol/L 21.0-32.0 [facility] Globulin (S) [Mass/Vol] 4.4 g/dL 2.2-4.2 [facility] Urea nitrogen/Creatinine [Mass ratio] 14.7 mg/mg 10-20 [facility] - Hematology and Cell countsOrdered By: Brook Butler on 02-11-2023 Erythrocyte distribution width (RBC) [Entitic vol] 39.9 fL 35.1-43.9 [facility] Erythrocyte distribution width (RBC) [Ratio] 12.7 % 11.6-14.6 [facility] MCH (RBC) [Entitic mass] 26.4 pg 27.0-32.0 [facility] Myelocytes/100 WBC (Bld) 5 % 0-0 [facility] MCHC Auto (RBC) [Mass/Vol]Or dered By: Brook Butler on 02-11-2023 MCHC (RBC) [Mass/Vol] 30.8 g/dL 32-36 [facility] No Panel InformationOrdered By: Brook Butler on 02-11-2023 Estimated GFR (MDRD) Amer 65 mL/min >60 [facility] Comment on above: GFR Calc Estimated GFR (MDRD) Non-Af Amer 54 mL/min >60 [facility] Comment on above: Non- GFR Calc Platelets bldOrdered By: Zhou Butler on 02-11-2023 Platelets (Bld) [#/Vol] 441 10*3/uL 150-450 [facility] RBC morphologyOrdered By: Rasta Butler on 02-11-2023 RBC morphology finding Nom (Bld) NORM C+C NORMAL NORM C&C [facility] Review by pathologistOrdered By: Brook Butler on 02-11-2023 Pathologist review Kevin (Unsp spec) [Interp] Reviewed [facility] Comment on above: Previous reported re sult: Precious caba Edited by: ANA LUISA on 02/15/23:1305 AMENDED REPORT 02/15/23 0923 PATH REV previously reported as: Precious caba Serum or plasma albumin yaima urement (mass/volume)Ordered By: Brook Butler on 02-11-2023 Albumin [Mass/Vol] 3.6 g/dL 3.2-5.0 [facility] Serum or plasma albumin/glob ulin mass ratioOrdered By: Brook Butler on 02-11-2023 Albumin/Globulin [Mass ratio] 0.8 {ratio} 0.9-2.4 [facility] Serum or plasma calcium yaima urement (mass/volume)Ordered By: Brook Butler on 02-11-2023 Calcium [Mass/Vol] 9.2 mg/dL 8.5-10.1 [facility] Serum or plasma creatinine m easurement (mass/volume)Ordered By: Brook Butler on 02-11-2023 Creatinine [Mass/Vol] 1.43 mg/dL 0.70-1.30 [facility] Comment on above: The validity of the calculated GFR & GFRAA in patients over 70 years has not been determined. Clinical correlation is essential. Serum or plasma urea nitroge n measurement (mass/volume)Ordered By: Brook Butler on 02-11-2023 Urea nitrogen [Mass/Vol] 21 mg/dL 7-18 [facility] Thin prep Papanicolaou smear with manual screeningOrdered By: Brook Butler on 02-11-2023 Thin prep Papanicolaou smear with manual screening 21 U/L 15 [facility] Thin prep Papanicolaou smear with manual screening 7 5-15 [facility] Total cell countOrdered By: Brook Butler on 02-11-2023 Cells counted Molgen (Bld/Tiss) [#] 100 MANUAL DIFF [facility] LABORATORYOrdered By: Zaira Gavin on 07-19-2022 Albumin DL <= 20 mg/L (U) [Mass/Vol] 5340 mcg/dL Invalid Interpretation Code AO ADM SS Albumin/Creatinine DL <= 20 mg/L (U) [Mass ratio] 143 mcg/mg Invalid Interpretation Code 0 - 30 mcg/mg AO ADM SS Creatinine (U) [Mass/Vol] 37.3 mg/dL Invalid Interpretation Code 39.0 - 259.0 mg/dL AO ADM SS LABORATORYOrdered By: SYSTEM SYSTEM on 07-16-2022 Albumin BCP dye [Mass/Vol] 3.8 G/dL Invalid Interpretation Code 3.5 - 5.0 G/dL AO ADM SS Albumin/Globulin [Mass ratio] 1.1 {ratio} Invalid Interpretation Code 1.1 - 2.5 ratio AO ADM SS ALP [Catalytic activity/Vol] 40 U/L Invalid Interpretation Code 40 - 135 U/L AO ADM SS ALT With P-5'-P [Catalytic activity/Vol] 22 U/L Invalid Interpretation Code 16 - 63 U/L AO ADM SS AST With P-5'-P [Catalytic activity/Vol] 28 U/L Invalid Interpretation Code 10 - 40 U/L AO ADM SS Bilirubin [Mass/Vol] 0.2 mg/dL Invalid Interpretation Code 0.2 - 1.0 mg/dL AO ADM SS Calcium [Mass/Vol] 9.8 mg/dL Invalid Interpretation Code 8.4 - 10.2 mg/dL AO ADM SS Chloride [Moles/Vol] 103 mmol/L Invalid Interpretation Code 98 - 107 mmol/L AO ADM SS CO2 [Moles/Vol] 27 mmol/L Invalid Interpretation Code 22 - 29 mmol/L AO ADM SS Creatinine [Mass/Vol] 1.27 mg/dL Invalid Interpretation Code 0.70 - 1.30 mg/dL AO ADM SS Electrolyte Balance 10.0 mEq/L Invalid Interpretation Code 4.0 - 15.0 mEq/L AO ADM SS GFR/1.73 sq M.predicted among blacks MDRD (S/P/Bld) [Vol rate/Area] 70 ml/min/1.73sqm Invalid Interpretation Code AO Chemistry S GFR/1.73 sq M.predicted among non-blacks MDRD (S/P/Bld) [Vol rate/Area] 58 ml/min/1.73sqm Invalid Interpretation Code AO Chemistry S Globulin 3.5 G/dL Invalid Interpretation Code AO ADM SS Glucose [Mass/Vol] 110 mg/dL Invalid Interpretation Code 70 - 105 mg/dL AO ADM SS HbA1c (Bld) [Mass fraction] 5.7 % Invalid Interpretation Code 4.3 - 6.4 % AO ADM SS Potassium [Moles/Vol] 5.0 mmol/L Invalid Interpretation Code 3.5 - 5.1 mmol/L AO ADM SS Protein [Mass/Vol] 7.3 G/dL Invalid Interpretation Code 6.4 - 8.2 G/dL AO ADM SS Sodium [Moles/Vol] 140 mmol/L Invalid Interpretation Code 136 - 145 mmol/L AO ADM SS TSH Qn 0.94 m[IU]/L Invalid Interpretation Code 0.36 - 3.74 mcIU/mL AO ADM SS Urea nitrogen [Mass/Vol] 26 mg/dL Invalid Interpretation Code 7 - 18 mg/dL AO ADM SS Urea nitrogen/Creatinine [Mass ratio] 20 ratio Invalid Interpretation Code 7 - 27 ratio AO ADM SS LABORATORYOrdered By: Sarah Velazquez on 07-16-2022 Cholesterol [Mass/Vol] 202 mg/dL Invalid Interpretation Code 0 - 200 mg/dL AO ADM SS Cholesterol in HDL [Mass/Vol] 49 mg/dL Invalid Interpretation Code 40 - 60 mg/dL AO ADM SS Cholesterol in LDL [Mass/Vol] 128 mg/dL Invalid Interpretation Code 0 - 130 mg/dL AO ADM SS Triglyceride [Mass/Vol] 127 mg/dL Invalid Interpretation Code 0 - 150 mg/dL AO ADM SS Absolute lymphocyte counton 02-08-2022 Lymphocytes Auto (Unsp spec) [#/Vol] 1.31 10*3/uL 0.83-4.51 [facility] Work Phone: Basophil percentageon 2021 Basophils/100 WBC (Bld) 1.0 % 0-1 [facility] Work Phone: Bilirubin [Mass/Vol] 0.40 mg/dL 0.20-1.00 [facility] Work Phone: Comment on above: For patients on eltr ombopag therapy, use of Dimension [place] TBIL is not recommended. Chloride [Moles/Vol] 104 mmol/L 98-107 [facility] Work Phone: Eosinophils/100 WBC (Bld) 6.6 % 0-5 [facility] Work Phone: Glucose [Mass/Vol] 106 mg/dL 74-106 [facility] Work Phone: Comment on above: Fasting Glucose resu lt from 100 to 125 mg/dL suggests IMPAIRED HOMEOSTASIS per A.D.A. criteria. Neutrophils (Bld) [#/Vol] 5.3 10*3/uL 2.0-7.7 [facility] Work Phone: Neutrophils/100 WBC (Bld) 65.4 % 47-70 [facility] Work Phone: Potassium [Moles/Vol] 4.1 mmol/L 3.5-5.1 [facility] Work Phone: Protein [Mass/Vol] 7.9 g/dL 6.4-8.2 [facility] Work Phone: Sodium [Moles/Vol] 137 mmol/L 136-145 [facility] Work Phone: WBC (Bld) [#/Vol] 8.0 10*3/uL 4.4-11.0 [facility] Work Phone: Blood erythrocytes count (nu mber/volume)on 02-08-2022 RBC (Bld) [#/Vol] 4.83 10*6/uL 4.6-6.2 [facility] Work Phone: Blood hemoglobin measurement (mass/volume)on 02-08-2022 Hemoglobin (Bld) [Mass/Vol] 13.3 g/dL 13.0-16.5 [facility] Work Phone: Blood lymphocytes/100 leukoc yteson 02-08-2022 Lymphocytes/100 WBC (Bld) 16.3 % 19-41 [facility] Work Phone: Blood monocytes/100 leukocyt eson 02-08-2022 Monocytes/100 WBC (Bld) 10.2 % 0-10 [facility] Work Phone: Blood platelet mean volumeon 02-08-2022 Platelet mean volume (Bld) [Entitic vol] 10.3 fL 6.2-12.0 [facility] Work Phone: Determination of erythrocyte mean corpuscular volume (MCV)on 02-08-2022 MCV (RBC) [Entitic vol] 84.7 fL 80-94 [facility] Work Phone: Hematocrit Auto (Bld) [Volum e fraction]on 02-08-2022 Hematocrit (Bld) [Volume fraction] 40.9 % 40-54 [facility] Work Phone: [phone] Laboratory - Chemistry and C hemistry - challengeon 02-08-2022 ALP [Catalytic activity/Vol] 37 U/L 45-117 [facility] Work Phone: [phone] ALT [Catalytic activity/Vol] 25 U/L 16-61 [facility] Work Phone: [phone] CO2 [Moles/Vol] 28.0 mmol/L 21.0-32.0 [facility] Work Phone: [phone] Globulin (S) [Mass/Vol] 4.2 g/dL 2.2-4.2 [facility] Work Phone: [phone] Urea nitrogen/Creatinine [Mass ratio] 14.7 mg/mg 10-20 [facility] Work Phone: [phone] Laboratory - Hematology and Cell countson 02-08-2022 Erythrocyte distribution width (RBC) [Entitic vol] 38.5 fL 35.1-43.9 [facility] Work Phone: [phone] Erythrocyte distribution width (RBC) [Ratio] 12.5 % 11.6-14.6 [facility] Work Phone: [phone] Immature granulocytes/100 WBC (Bld) 0.500 % 0.0-0.9 [facility] Work Phone: [phone] Comment on above: IG% - Immature Granu locytes (promyelocytes, myelocytes and metamyelocytes) > 1% indicates that a LEFT SHIFT is Present. MCH (RBC) [Entitic mass] 27.5 pg 27.0-32.0 [facility] Work Phone: [phone] Nucleated RBC/100 WBC (Bld) [Ratio] 0 % 0-5 [facility] Work Phone: [phone] MCHC Auto (RBC) [Mass/Vol]on 02-08-2022 MCHC (RBC) [Mass/Vol] 32.5 g/dL 32-36 [facility] Work Phone: [phone] No Panel Informationon 02-08 Estimated GFR (MDRD) Amer 73 mL/min >60 [facility] Work Phone: Comment on above: GFR Calc Estimated GFR (MDRD) Non-Af Amer 61 mL/min >60 [facility] Work Phone: Comment on above: Non- GFR Calc Platelets bldon 02-08-2022 Platelets (Bld) [#/Vol] 456 10*3/uL 150-450 [facility] Work Phone: Serum or plasma albumin yaima urement (mass/volume)on 02-08-2022 Albumin [Mass/Vol] 3.7 g/dL 3.2-5.0 [facility] Work Phone: Serum or plasma albumin/glob ulin mass ratioon 02-08-2022 Albumin/Globulin [Mass ratio] 0.9 {ratio} 0.9-2.4 [facility] Work Phone: Serum or plasma calcium yaima urement (mass/volume)on 02-08-2022 Calcium [Mass/Vol] 9.8 mg/dL 8.5-10.1 [facility] Work Phone: Serum or plasma creatinine m easurement (mass/volume)on 02-08-2022 Creatinine [Mass/Vol] 1.29 mg/dL 0.70-1.30 [facility] Work Phone: Comment on above: The validity of the calculated GFR & GFRAA in patients over 70 years has not been determined. Clinical correlation is essential. Serum or plasma urea nitroge n measurement (mass/volume)on 02-08-2022 Urea nitrogen [Mass/Vol] 19 mg/dL 7-18 [facility] Work Phone: Thin prep Papanicolaou smear with manual screeningon 02-08-2022 Thin prep Papanicolaou smear with manual screening 12 U/L 15-37 [facility] Work Phone: Thin prep Papanicolaou smear with manual screening 5 5-15 [facility] Work Phone: Basophil percentageon 2021 Bilirubin [Mass/Vol] 0.50 mg/dL 0.20-1.00 [facility] Work Phone: Comment on above: For patients on eltr ombopag therapy, use of Dimension [place] TBIL is not recommended. Protein [Mass/Vol] 7.2 g/dL 6.4-8.2 [facility] Work Phone: Direct bilirubinon Bilirubin.direct [Mass/Vol] 0.10 mg/dL 0.00-0.30 [facility] Work Phone: [phone] Laboratory - Chemistry and C hemistry - challengeon 10-20-2021 ALP [Catalytic activity/Vol] 34 U/L 45-117 [facility] Work Phone: [phone] ALT [Catalytic activity/Vol] 27 U/L 16-61 [facility] Work Phone: [phone] Globulin (S) [Mass/Vol] 3.6 g/dL 2.2-4.2 [facility] Work Phone: [phone] Serum or plasma albumin yaima urement (mass/volume)on 10-20-2021 Albumin [Mass/Vol] 3.6 g/dL 3.2-5.0 [facility] Work Phone: Serum or plasma [id number] protein tumor marker measurement (units/volume)on 10-20-2021 AFP.tumor marker Qn 2.6 ng/mL 0.0-8.4 [facility] Work Phone: Comment on above: [facility] El ectrochemiluminescence Immunoassay(ECLIA)Values obtained with different assay methods or kits cannotbe used interchangeably. Results cannot be interpreted asabsolute evidence of the presence or absence of malignantdisease.This test is not interpretable in females.Performed at: [facility] [id number] Director: Lemuel Hernandez PhD, Phone: [phone] Thin prep Papanicolaou smear with manual screeningon 10-20-2021 Thin prep Papanicolaou smear with manual screening 20 U/L 15-37 [facility] Work Phone: LABORATORYOrdered By: Mylene Stahl on 07-29-2021 Basophil, Absolute 0.10 103/mcL Invalid Interpretation Code 0.00 - 0.19 10^3/mcL AO Auto Heme SS Basophils/100 WBC (Bld) 1.2 % Invalid Interpretation Code 0.0 - 2.5 % AO Auto Heme SS Eosinophil, Absolute 0.70 103/mcL Invalid Interpretation Code 0.00 - 0.40 10^3/mcL AO Auto Heme SS Eosinophils/100 WBC (Bld) 7.0 % Invalid Interpretation Code 0.0 - 7.0 % AO Auto Heme SS Erythrocyte distribution width (RBC) [Ratio] 13.1 % Invalid Interpretation Code 11.5 - 14.5 % AO Auto Heme SS Hematocrit (Bld) [Volume fraction] 40.6 % Invalid Interpretation Code 42.0 - 52.0 % AO Auto Heme SS Hemoglobin (Bld) [Mass/Vol] 13.3 G/dL Invalid Interpretation Code 14.0 - 18.0 G/dL AO Auto Heme SS Lymphocyte, Absolute 2.00 103/mcL Invalid Interpretation Code 0.77 - 3.85 10^3/mcL AO Auto Heme SS Lymphocytes/100 WBC (Bld) 20.0 % Invalid Interpretation Code 10.0 - 50.0 % AO Auto Heme SS MCH (RBC) [Entitic mass] 26.8 pg Invalid Interpretation Code 27.0 - 31.2 pg AO Auto Heme SS MCHC (RBC) [Mass/Vol] 32.8 G/dL Invalid Interpretation Code 31.8 - 35.4 G/dL AO Auto Heme SS MCV (RBC) [Entitic vol] 81.7 fL Invalid Interpretation Code 80.0 - 94.0 fL AO Auto Heme SS Monocyte, Absolute 1.00 103/mcL Invalid Interpretation Code 0.15 - 1.00 10^3/mcL AO Auto Heme SS Monocytes/100 WBC (Bld) 10.0 % Invalid Interpretation Code 1.7 - 13.0 % AO Auto Heme SS Neutrophil, Absolute 6.30 103/mcL Invalid Interpretation Code 2.85 - 6.16 10^3/mcL AO Auto Heme SS Neutrophils/100 WBC (Bld) 61.8 % Invalid Interpretation Code 37.0 - 80.0 % AO Auto Heme SS Platelet mean volume (Bld) [Entitic vol] 9.2 fL Invalid Interpretation Code 7.4 - 10.4 fL AO Auto Heme SS Platelets (Bld) [#/Vol] 432 103/mcL Invalid Interpretation Code 130 - 400 10^3/mcL AO Auto Heme SS RBC (Bld) [#/Vol] 4.96 106/mcL Invalid Interpretation Code 4.04 - 6.13 10^6/mcL AO Auto Heme SS WBC (Bld) [#/Vol] 10.10 103/mcL Invalid Interpretation Code 4.60 - 10.80 10^3/mcL AO Auto Heme SS BILI TOTALon 06-14-2020 BILI TOTAL 0.40 MG/DL Normal 0.2-1.0 [facility] Comment on above: Performed By: #### L 500.60415, L500.55686, L500.14472, L500.67362 #### [facility] [address] [place] [address] Keven 06-14-2020 FERR 745.6 NG/ML High 24.0-388.0 [facility] Comment on above: Performed By: #### L 500.84399, L500.62508, L500.74636, L500.18145 #### [facility] [address] [place] [address] IRON PANELon 06-14-2020 Iron [Mass/Vol] 65 ug/dL Normal 65-175 [facility] Comment on above: Result Comment: Edwige ents treated with metal-binding drugs (e.g.deferoxamine) may have depressed iron values, as chelated iron may not properly react in the Siemens iron assay. Performed By: #### L 500.62560, L500.57155, L500.76755, L500.30802 #### [facility] [address] [place] [address] IRON SAT 16 % Low 30-44 [facility] Comment on above: Performed By: #### L 500.73962, L500.25356, L500.43181, L500.29675 #### [facility] [address] [place] [address] TIBC 403 UG/DL Normal 221-481 [facility] Comment on above: Performed By: #### L 500.11306, L500.74631, L500.16242, L500.91986 #### [facility] [place] [address] TPon 06-14-2020 Protein [Mass/Vol] 7.1 g/dL Normal 6.0-8.5 [facility] Comment on above: Performed By: #### L 500.76248, L500.53824, L500.83364, L500.48797 #### [facility] [address] [place] [address] CREATon 12-14-2019 Creatinine [Mass/Vol] 0.96 mg/dL Normal 0.5-1.4 [facility] Comment on above: Result Comment: NOTE NEW NORMAL RANGE DUE TO REAGENT CHANGE Patients receiving either N-Acetylcysteine (NAC) or Metamizole prior to venipuncture, may have falsely depressed results. Performed By: #### L 550.75771, L500.98593, L500.08144, L500.00394 #### [facility] [address] [place] [address] CRPon 12-14-2019 CRP [Mass/Vol] 0.4 mg/L Normal 0.00-0.32 [facility] Comment on above: Performed By: #### L 550.28174, L500.22764, L500.52214, L500.05376 #### [facility] [address] [place], [place] [id number] GFR ESTon 12-14-2019 IF AMER Greater than 60 Normal [facility] Comment on above: Performed By: #### L 550.27396, L500.19846, L500.28074, L500.70387 #### [facility] [address] [place], [place] [id number] IF non-AFR AMER Greater than 60 Normal [facility] Comment on above: Performed By: #### L 550.44706, L500.89954, L500.15129, L500.35284 #### [facility] [place] [address] LIVERon 12-14-2019 Albumin [Mass/Vol] 4.2 g/dL Normal 3.2-5.0 [facility] Comment on above: Performed By: #### L 550.50114, L500.61580, L500.60447, L500.82403 #### [facility] [place] [address] Albumin/Globulin [Mass ratio] 1.4 {ratio} Normal 0.8-2.0 [facility] Comment on above: Performed By: #### L 550.67655, L500.11536, L500.29045, L500.97804 #### [facility] [address] [place] [address] ALK PHOS 42 U/L Low 45-117 [facility] Comment on above: Performed By: #### L 550.31011, L500.37187, L500.17472, L500.16616 #### [facility] [address] [place] [address] ALT [Catalytic activity/Vol] 18 U/L Normal 13-61 [facility] Comment on above: Result Comment: RESU LTS MAY BE FALSELY DEPRESSED AFTER THE ADMINISTRATION OF SULFASALAZINE AND/OR SULFAPYRIDINE. Performed By: #### L 550.14260, L500.32781, L500.55094, L500.35112 #### [facility] [address] [place], [place] [id number] BILI DIRECT 0.2 MG/DL Normal 0.00-0.36 [facility] Comment on above: Result Comment: NOTE NEW NORMAL RANGE DUE TO REAGENT CHANGE Performed By: #### L 550.09730, L500.95566, L500.74801, L500.35483 #### [facility] [place] [address] BILI TOTAL 0.60 MG/DL Normal 0.2-1.0 [facility] Comment on above: Performed By: #### L 550.56986, L500.90597, L500.19531, L500.92814 #### [facility] [address] [place] [address] Globulin (S) [Mass/Vol] 2.9 g/dL Normal 2.2-4.2 [facility] Comment on above: Performed By: #### L 550.66444, L500.37506, L500.30763, L500.80990 #### [facility] [address] [place] [address] Protein [Mass/Vol] 7.1 g/dL Normal 6.0-8.5 [facility] Comment on above: Performed By: #### L 550.92706, L500.94975, L500.66363, L500.41452 #### [facility] [address] [place] [address] SGOT (AST) 21 U/L Normal 8-34 [facility] Comment on above: Result Comment: RESU LTS MAY BE FALSELY DEPRESSED AFTER THE ADMINISTRATION OF SULFASALAZINE AND/OR SULFAPYRIDINE. Performed By: #### L 550.77940, L500.59826, L500.25134, L500.53955 #### [facility] [address] [place] [address] Encounters Encounter Date Encounter Type Care Provider Facility Start: 06-22-2024 End: 06-22-2024 ambulatory JENNY CRAIG [employer] TECH Facility:[facility] Start: 04-09-2024 End: 04-09-2024 ambulatory Jenny Craig SURGERY CONSULTANT Facility:[facility] Start: 01-20-2024 End: 01-20-2024 ambulatory JENNY CRAIG [employer] TECH Facility:[facility] Start: 01-20-2024 End: 01-20-2024 Patient encounter procedure JENNY CRAIG [employer] TECH [facility] Start: 12-23-2023 End: 12-23-2023 ambulatory JENNY CRAIG [employer] TECH Facility:[facility] Start: 12-23-2023 End: 12-23-2023 Patient encounter procedure JENNY CRAIG [employer] REC[employer]DS TECH [facility] Start: 10-20-2023 End: 10-20-2023 ambulatory Brook Butler Facility:[facility] Start: 08-24-2023 End: 08-29-2023 ambulatory JENNY KIARA [employer] TECH Facility:[facility] Start: 08-24-2023 End: 08-28-2023 Outreach Lab JENNY CRAIG [employer] TECH [facility] Start: 06-30-2023 End: 06-30-2023 ambulatory Yonas Solares Facility:[facility] Start: 05-26-2023 End: 05-27-2023 ambulatory JENNY CRAIG [employer] TECH Facility:[facility] Start: 04-28-2023 End: 04-28-2023 ambulatory [facility] Work Phone: Start: 04-28-2023 End: 04-28-2023 Patient encounter procedure [facility] Work Phone: Start: 02-11-2023 End: 02-11-2023 ambulatory [facility] Work Phone: Start: 02-11-2023 End: 02-11-2023 Patient encounter procedure [facility] Work Phone: Start: 07-19-2022 End: 07-23-2022 Outreach Lab JENNY CRAIG [employer] TECH [facility] Start: 07-16-2022 End: 07-16-2022 Patient encounter procedure ADAM DAVIDSON [employer] TECH [facility] Start: 02-08-2022 End: 02-08-2022 ambulatory [facility] Work Phone: Start: 02-08-2022 End: 02-08-2022 Patient encounter procedure [facility] Start: 11-02-2021 End: 11-02-[address] LEMUEL PARIS MD [facility] Start: 10-20-2021 End: 10-20-2021 Patient encounter procedure [facility] Start: 07-29-2021 End: 07-29-[address] BROOK BUTLER MD [facility] Procedures Date Procedure Procedure Detail Performing Clinician Colonoscopy DR BROOK SIMMONS MD Immunizations Immunization Date Immunization Notes Care Provider [facility] 12-21-2022 influenza virus vaccine, unspecified formulation JENNY CRAIG [employer] TECH [facility] 12-20-2022 hepatitis A vaccine, adult dosage; Translations: [Havrix] JENNY CRAIG [employer] TECH [facility] 12-20-2022 tetanus toxoid, redu william diphtheria toxoid, and acellular pertussis vaccine, adsorbed; Translations: [Boostrix (Tdap)] JENNY CRAIG [employer] TECH [facility] 10-01-2010 tetanus toxoid, redu william diphtheria toxoid, and acellular pertussis vaccine, adsorbed DR BROOK BUTLER MD [facility] 10-13-1999 diphtheria and tetan us toxoids, adsorbed for pediatric use DR BROOK BUTLER MD [facility] Payers Date Payer Category Payer Self-pay [id number] 2023 Unknown [id number] 1963 Unknown [id number] 2.16.8 [id number] 1963 Unknown [id number] 2.16.8 [id number] 1963 Unknown [id number] 2.16.8 [id number] 1963 Unknown [id number] 2.16.8 [id number] 1963 Unknown [id number] 2.16.8 [id number] Unknown [id number] 2.16.8 [id number] Unknown [id number] 2.16.8 [id number] Unknown [id number] Unknown [id number] Social History Date Type Detail Facility Start: 03-05-2020 End: 01-17-2024 Tobacco smoking status Heavy tobacco smoker (finding) [facility] Start: 1965 Sex Assigned At Male A [facility] Evaluation + Plan note Laboratory Note Date & Type Note Facility Evaluation + Plan note Future Appointments Appointment Date:01/18/2022 07:00:00 AM Scheduled Provider:JENNY CRAIG Location:[facility] NED Appointment Type:PC Wellness Annual Future Scheduled [id number] Hemoglobin 02/27/21Lipid Profile 02/27/21Complete Metabolic Panel 02/27/21 [facility] Evaluation + Plan note Laboratory Note Date & Type Note Facility Evaluation + Plan note Future Appointments Appointment Date:07/19/2022 08:00:00 AM Scheduled Provider:JENNY CRAIG Location:[facility] NED Appointment Type:PC OV Diagnostic Tests PendingLipoprotein (a) 07/16/22 Future Scheduled TestsProstate Specific Antigen 07/19/22A1C Hemoglobin 07/19/22Complete Blood Count 07/19/22Lipid Profile 07/19/22Complete Metabolic Panel 07/19/22 [facility] Evaluation + Plan note Note Date & Type Note Facility Evaluation + Plan note Future Appointments Appointment Date:12/20/2022 07:30:00 AM Scheduled Provider:JENNY CRAIG Location:[facility] NED Appointment Type:PC Wellness Annual [facility] Evaluation + Plan note Laboratory Note Date & Type Note Facility Evaluation + Plan note Future Appointments Appointment Date:12/28/2023 07:00:00 AM Scheduled Provider:JENNY CRAIG Location:[facility] NED Appointment Type:PC OV Future Scheduled TestsAlbumin/Creatinine Ratio, Random Urine 06/20/23 [facility] Evaluation + Plan note Laboratory Note Date & Type Note Facility Evaluation + Plan note Future Appointments Appointment Date:06/26/2024 07:00:00 AM Scheduled Provider:JENNY CRAIG Location:[facility] NED Appointment Type:PC OV Future Scheduled TestsProstate Specific Antigen 12/28/23A1C Hemoglobin 06/26/24Lipid Profile 06/26/24Albumin/Creatinine Ratio, Random Urine 06/20/23Albumin/Creatinine Ratio, Random Urine 06/26/24Complete Metabolic Panel 06/26/24 [facility] Evaluation note Note Date & Type Note Facility Evaluation note No assessment information availa shira [facility] Work Phone: Hospital course Narrative Note Date & Type Note Facility Hospital course Narrative No data available for this section [facility] Hospital Discharge instructions Note Date & Type Note Facility Hospital Discharge instructions No data available for this section [facility] Progress note Note Date & Type Note Facility Progress note No data available for this section [facility] Summary Purpose Family History No Family History Records Found No data available for this section No Family History Records Found No data available for this section No data available for this section No Family History Records FoundNo Family History Records Found Advance Directives No Advanced Directives Records FoundNo Advanced Directives Records FoundNo Advanced Directives Records FoundNo Advanced Directives Records Found Chief Complaint and Reason for Visit Chief Complaint SEE ORDER Chief Complaint PAIN- COPY PCP Chief Complaint PAIN- COPY PCP PAIN- COPY PCP Additional Source Comments (unrecognized sect ion and content) No Status Records FoundNo Status Records FoundNo Status Records FoundNo Status Records Found INFORMATION SOURCE (unrecogn ized section and content) DATE CREATED AUTHOR 06/19/2020 [facility] DATE CREATED AUTHOR AUTHOR'S ORGANIZ ATION 08/29/2023 [facility] ([place]) DATE CREATED AUTHOR AUTHOR'S ORGANIZ ATION 04/30/2024 [facility] DATE CREATED AUTHOR AUTHOR'S ORGANIZ ATION 06/23/2024 [facility] Care Team (unrecognized sect ion and content) Team Status: Active Member Role Status Dates Jenny Craig SURGERY CONSULTANT, SURGERY CONSULTANT-C Primary Care Provider Active Team Status: Inactive Member Role Status Dates Jenny Craig SURGERY CONSULTANT, SURGERY CONSULTANT-C Primary Care Provider Active Dr. Brook Butler MD Attending Provider, Referring Provider Active Goals (unrecognized section and content) Goals may be documented in a n alternate section Care Team (unrecognized sect ion and content) Care Team Personnel Name: JENNY CRAIG [employer] TECH Position: P4 Advanced Practice Nurse Med Service: Active Provider Member Role: Primary Care Physician Address: Address: [address] [place] [id number] Care Team Related Persons Name: WILMA GRIMES Address: Home [address] [place], [place] [phone] Name: WILMA GRIMES Address: Home [address] [place], [place] [phone] FOR RECORDS PERTAINING TO PATIENTS WHO ARE [...] BE BASED ON THE PRIMARY CLINICAL RECORDS. [employer] provides no warranty or guarantee of the accuracy or completeness of information in this document.
== END | disposition home or self-care (01) ==
LOC: MTLAB 07:50
PROVIDERS: PCP Nurse Practitioner Family; Referring Provider Internal Medicine Rheumatology; Visit Provider Internal Medicine Rheumatology
DX: L40.59 Other psoriatic arthropathy (principal); Z79.899 Other long term (current) drug therapy
CPT/HCPCS: 36415; 80053; 85025